=== PATIENT | female | born 1980 | race Caucasian/White ===

== ENCOUNTER → 2018-09-22 | Outpatient (CLI) | payer BC ==
[~2018-09-22] MED LIST: BALSALAZIDE DI750 MG PO; DIATRIZOATE MEGL/DIATRIZOA SOD 30 ML BTL PO ONE; FLAGYL250 MG PO; IOPAMIDOL 370 MG/ML 200 ML INFUS..BTL INJ ONE; IRON SULFATE PO; LEVAQUIN500 MG PO; NORCO 5-325 TA1 EACH PO; PANTOPRAZOLE SO40 MG PO; PROMETHAZINE HC50 MG PO; SODIUM CHLORIDE 0.9% 50ML 50 ML ONE
--- NOTE | 2018-09-22 11:01 | Diagnostic Imaging Report ---
EXAM: CT Abdomen and Pelvis WITH intravenous contrast INDICATION: Abdominal pain COMPARISON: None. TECHNIQUE: Abdomen and pelvis were scanned utilizing a multidetector helical scanner from the lung base to the pubic symphysis after administration of IV contrast. Coronal and sagittal reformations were obtained. Routine protocol was performed. Scan was performed when during portal venous phase. IV CONTRAST: 100mL of Isovue 370 ORAL CONTRAST: Gastrografin COMPLICATIONS: None RADIATION DOSE: Total DLP: 234.3 mGy*cm Dose modulation, iterative reconstruction, and/or weight based adjustment of the mA/kV was utilized to reduce the radiation dose to as low as reasonably achievable. FINDINGS: LOWER THORAX: Minimal bibasilar dependent subsegmental atelectasis. The heart is not enlarged. Tiny sliding hiatal hernia. HEPATOBILIARY: No focal hepatic lesions. No biliary ductal dilatation. The gallbladder appears unremarkable. SPLEEN: No splenomegaly. PANCREAS: No focal masses or ductal dilatation. ADRENALS: No adrenal nodules. KIDNEYS/URETERS: No hydronephrosis, stones, or solid mass lesions. 5.3 cm exophytic simple cyst at the upper pole of right kidney. PELVIC ORGANS/BLADDER: Distended bladder. No wall thickening. PERITONEUM / RETROPERITONEUM: No free air or fluid. LYMPH NODES: No lymphadenopathy. VESSELS: Unremarkable. GI TRACT: No abnormal bowel thickening or bowel obstruction. BONES AND SOFT TISSUES: No acute osseous injury. No suspicious lytic or blastic lesions. IMPRESSION: No acute findings in the abdomen or pelvis. Signed by: Karishma Shah MD on 09/22/2018 10:58 AM
== END ==
LOC: CT 09:03
PROVIDERS: ATTEND Internal Medicine Gastroenterology
DX: R10.30 Lower abdominal pain, unspecified (principal)
CPT/HCPCS: 74177; Q9967

== ENCOUNTER → 2018-09-28 | Day surgery (SDC) | payer BC ==
[~2018-09-28] MED LIST changes: -DIATRIZOATE MEGL/DIATRIZOA SOD 30 ML BTL PO ONE; +GLUCAGON FOR INJ 1 MG VIAL ONE; +HYOSCYAMINE 0.125 MG TAB ONE; -IOPAMIDOL 370 MG/ML 200 ML INFUS..BTL INJ ONE; +METOCLOPRAMIDE HCL 10 MG/2ML VIAL ONE; +PANTOPRAZOLE 40 MG 10ML VIAL ONE; +PROPOFOL IV EMULSION 10 MG/ML 50 ML VIAL ONE; -SODIUM CHLORIDE 0.9% 50ML 50 ML ONE
--- OUTSIDE RECORDS SUMMARY | 2018-09-28 08:38 | XMS REPORT ---
Author Author [facility] Address Unknown Phone Unavailable Care Team Providers Care Tugboat Mate Name Role Phone PATEL WEST Unavailable Unavailable Problems This patient has no known problems. Allergies, Adverse Reactions, Alerts This patient has no known allergies or adverse reactions. Medications This patient has no known medications. Results Test Description Test Time Test Comments Text Results Atomic Results Result Comments CT ABDOMEN/PELVIS W 2018-09-22 10:51:00 [place] [address] Patient Name: BIRD BOONE MR #: [id number] : 1980 Age/Sex: 38/F Req #: [id number] Adm Physician: Ordered by: PATEL WEST MD Report #: [id number] Location: CT Room/Bed: Procedure: [id number] CT/CT ABDOMEN/PELVIS W Exam Date: Exam Time: REPORT STATUS: Signed EXAM: CT Abdomen and Pelvis WITH intravenous contrast INDICATIO N: Abdominal pain COMPARISON: None. TECHNIQUE: Abdomen and pelvis were scanned utilizing a multidetector helical scanner from the lung base to the pubic symphysis after administration of IV contrast. Coronal and sagittal reformations were obtained. Routine protocol was performed. Scan was performed when during portal venous phase. IV CONTRAST: 100mL of Isovue 370 ORAL CONTRAST: Gastrografin COMPLICATIONS: None RADIATION DOSE: Total DLP: 234.3 mGy*cm Dose modulation, iterative reconstruction, and/or weight based adjustment of the mA/kV was utilized to reduce the radiation dose to as low as reasonably achievable. FINDINGS: LOWER THORAX: Minimal bibasilar dependent subsegmental atelectasis. The heart is not enlarged. Tiny sliding hiatal hernia. HEPATOBILIARY: No focal hepatic lesions. No biliary ductal dilatation. The gallbladder appears unremarkable. SPLEEN: No splenomegaly. PANCREAS: No focal masses or ductal dilatation. ADRENALS: No adrenal nodules. KIDNEYS/URETERS: No hydronephrosis, stones, or solid mass lesions. 5.3 cm exophytic simple cyst at the upper pole of right kidney. PELVIC ORGANS/BLADDER: Distended bladder. No wall thickening. PERITONEUM / RETROPERITONEUM: No free air or fluid. LYMPH NODES: No lymphadenopathy. VESSELS: Unremarkable. GI TRACT: No abnormal bowel thickening or bowel obstruction. BONES AND SOFT TISSUES: No acute osseous injury. No suspicious lytic or blastic lesions. IMPRESSION: No acute findings in the abdomen or pelvis. Signed by: Catrachito Shah MD on 09/22/2018 10:58 AM Dictated By: CATRACHITO SHAH MD [id number] Transcribed By: LAKISHA on 09/22/18 1052 COPY TO: PATEL WEST MD
[2018-09-28 13:25] VITALS: BP 102/57
[2018-09-28 14:56] LABS: WBC,FECAL (FECAL LACTOFERRIN) POSITIVE (NEGATIVE)
[2018-09-28 15:48] LABS: C DIFFICILE TOXIN A&B AMP PROB NEGATIVE (NEGATIVE)
--- NOTE | 2018-09-28 15:55 | Operative Report ---
DATE OF PROCEDURE: 09/28/2018 SURGEON: Jose Reyna MD PROCEDURES: Esophagogastroduodenoscopy with biopsies and colonoscopy with biopsies. INDICATIONS FOR EGD: History of dark stools. INDICATIONS FOR COLONOSCOPY: Blood, mucus per rectum, fecal urgency. MEDICATIONS: The patient was done under MAC, please see anesthesiologist's note. PROCEDURE IN DETAIL: With the patient in left lateral decubitus position, the flexible fiberoptic Olympus gastroscope was introduced into the esophagus under direct visualization without any difficulty. There was a minute ulcer with heaped up margins noted in the distal esophagus and it was biopsied. The scope was then advanced with ease into the stomach traversing a moderate-sized hiatal hernia. The patient is apparently status post gastric sleeve. The mucosa overlying the body of the stomach revealed some patchy intense erythema? vascular ectasia. Biopsies were obtained. Also, mild inflammatory changes were noted in the antrum and biopsies were obtained. The pylorus was of normal contour and shape, it was intubated with ease and the scope was advanced all the way to the second portion of the duodenum. Biopsies were obtained from the second portion and the duodenal bulb to rule out sprue. The scope was then withdrawn back into the stomach and retroflexed and previously described hiatal hernia was also noted in the retroflexed position. The scope was then straightened out, it was subsequently withdrawn. The patient tolerated the procedure well. IMPRESSION: 1. Minute ulcer distal esophagus with heaped up margins, biopsied. 2. Moderate-sized hiatal hernia. 3. Status post gastric sleeve. 4. Gastritis? Numerous vascular ectasia in the body of stomach. 5. Rule out sprue. PLAN: Follow up histology. Initiate Protonix 40 mg one p.o. q.a.m. a.c. PROCEDURE IN DETAIL: The patient was then turned around after adequate lubrication of the anal canal. A flexible fiberoptic Olympus colonoscope was inserted into the rectum and advanced all the way to the cecum. Mucosa overlying the cecum grossly appeared to be within normal limits. The ileocecal valve was intubated and the scope was advanced into the terminal ileum. Biopsies were obtained. The scope was then withdrawn back into the colon. It was then withdrawn slowly and the ascending colon appeared basically to be within normal limits. There were some diffuse [id number] inflammatory changes noted in the transverse colon. The descending sigmoid and rectum was diffusely ulcerated with multiple punched-out ulcers and multiple random biopsies were obtained. The scope was then retroflexed into the distal rectum and moderate-sized internal hemorrhoids were noted, none of which was actively bleeding. The scope was then straightened out, it was subsequently withdrawn after securing an adequate stool specimen that was sent for the appropriate stool studies. The patient tolerated the procedure well. IMPRESSION: 1. Severe ulcerative colitis involving the descending colon and rectum and to a lesser extent the transverse colon. Ascending colon, cecum appeared to be spared. Multiple random biopsies were obtained. 2. Internal hemorrhoids, none actively bleeding. PLAN: Followup histology. Stain for CMV. Follow up stool studies. Check IBD panel, CRP, and sedimentation rate. Initiate Canasa suppositories 1000 mg at bedtime and balsalazide 750 mg three p.o. t.i.d. Jose Reyna MD [facility] /[id number] cc: Dariel Tucker DO
== END | disposition home or self-care (01) ==
LOC: OR 08:36
PROVIDERS: ATTEND Internal Medicine Gastroenterology
DX: K29.00 Acute gastritis without bleeding (principal); K29.50 Unspecified chronic gastritis without bleeding; K51.80 Other ulcerative colitis without complications; K21.0 Gastro-esophageal reflux disease with esophagitis; K22.10 Ulcer of esophagus without bleeding; K59.00 Constipation, unspecified; K44.9 Diaphragmatic hernia without obstruction or gangrene; K64.8 Other hemorrhoids; Z98.84 Bariatric surgery status; K13.79 Other lesions of oral mucosa
CPT/HCPCS: 36415; 43239; 45380; 83630; 83993; 84702; 85651; 86039; 86140; 86256; 86671; 87045; 87177; 87328; 87493; C9113; J1610; J2704; J2765; 45378

== ENCOUNTER 2018-10-16 16:03 | Inpatient (IN) | payer BC ==
[~2018-10-16] VITALS: Ht 170.2 cm; Wt 60.4 kg
[2018-10-16] MEDS ORDERED: PANTOPRAZOLE 40 MG 10ML VIAL IV ONE (16:17)
[2018-10-16] MEDS ORDERED: ONDANSETRON HCL INJ 2MG/ML 2ML 2 MG/ML VIAL IV ONE (16:17)
[2018-10-16] MEDS ORDERED: MORPHINE SULFATE 2 MG/ML SYR 1ML IV STA (16:17)
[2018-10-16] MEDS ORDERED: DICYCLOMINE HCL 20 MG/2 ML VIAL IM ONE (16:30)
[2018-10-16] MEDS ORDERED: SODIUM CHLORIDE 0.9% 1000ML 1,000 ML IV ONE (16:30)
[2018-10-16] MEDS ORDERED: MORPHINE SULFATE INJ 4 MG/ML INJ 1ML IV ONE (16:30)
[2018-10-16] MEDS ORDERED: DEXAMETHASONE SOD PHOS 10 MG/1 ML VIAL IV ONE (16:30)
[2018-10-16 17:04] LABS: BASOPHILS % 0.3 % (0.0-1.0); EOSINOPHILS % 0.3 % (0.0-6.0); HEMATOCRIT 30.4 % (34.2-44.1); HEMOGLOBIN 9.9 g/dL (12.0-16.0); LYMPHOCYTES # (AUTO) 1.2 (1.0-3.2); LYMPHOCYTES % 16.7 % (18.0-39.1); MEAN CORPUSCULAR HEMOGLOBIN 30.4 pg (28-32); MEAN CORPUSCULAR HGB CONC 32.6 g/dL (31-35); MEAN CORPUSCULAR VOLUME 93.3 fL (81-99); MONOCYTES # (AUTO) 0.6 (0.2-0.8); MONOCYTES % 8.5 % (4.4-11.3); NEUTROPHILS # (AUTO) 5.4 (2.1-6.9); NEUTROPHILS % 72.6 % (38.7-80.0); PLATELET COUNT 540 x10e3/uL (140-360); RED BLOOD COUNT 3.26 x10e6/uL (3.6-5.1)
[2018-10-16 17:23] LABS: ALANINE AMINOTRANSFERASE 11 IU/L (0-55); ALBUMIN 1.9 g/dL (3.5-5.0); ALBUMIN/GLOBULIN RATIO 0.5 (0.8-2.0); ALKALINE PHOSPHATASE 102 IU/L (40-150); ANION GAP 13.2 mmol/L (8-16); BLOOD UREA NITROGEN 10 mg/dL (7-26); BUN/CREATININE RATIO 16 (6-25); CALCIUM 8.1 mg/dL (8.4-10.2); CARBON DIOXIDE 31 mmol/L (22-29); CHLORIDE 92 mmol/L (98-107); CREATININE, SERUM 0.64 mg/dL (0.57-1.11); EST GLOMERULAR FILTRATION RATE > 60 ML/MIN (60-); GLUCOSE 103 mg/dL (74-118); POTASSIUM 3.2 mmol/L (3.5-5.1); SODIUM 133 mmol/L (136-145)
[2018-10-16] MEDS ORDERED: POTASSIUM CHLORIDE 20MEQ/100ML 100 ML IV ONE (17:30)
[2018-10-16] MEDS: SODIUM CHLORIDE 0.9% 1000ML 1,000 ML IV SCH (18:22)
[2018-10-16] MEDS ORDERED: PANTOPRAZOLE SO40 MG PO (18:25)
[2018-10-16] MEDS ORDERED: BALSALAZIDE DI750 MG PO (18:25)
[2018-10-16] MEDS ORDERED: ACETAMINOPHEN 325 MG TAB ONE (19:43)
[2018-10-16] MEDS ORDERED: ACETAMINOPHEN 325 MG TAB PO PRN (19:45)
--- NOTE | 2018-10-16 19:50 | NUR ---
PT ARRIVED ON THE UNIT VIA STRETCHER AT 1950. PT IS A&OX3. RESPIRATION IS EVEN AND UNLABORED, NO DISTRESS NOTED. PT AND HER MOTHER ORIENTED TO THE ROOM, BED IN LOWEST POSITION, LOCKED, AND CALL LIGHT WITHIN REACH. ADMISSION AND HEAD TO TOE ASSESSMENT COMPLETE. WILL CONTINUE TO MONITOR.
[2018-10-16 20:00] VITALS: BP 96/54
--- NOTE | 2018-10-16 20:11 | NUR ---
PAGE DR Elaina WEST FOR ORDERS. AWAITING CALL BACK. WILL CONTINUE TO MONITOR.
--- NOTE | 2018-10-16 20:54 | NUR ---
PER DR Elaina WEST DILAUDID 2MG IV Q4H PRN. WILL CONTINUE TO MONITOR.
[2018-10-16 21:29] LABS: BAND NEUTROPHILS % (MANUAL) 7 %; LYMPHOCYTES % (MANUAL) 19 % (19-48); METAMYELOCYTES % (MANUAL) 1 % (0-0); MONOCYTES % (MANUAL) 10 % (3.4-9.0); MYELOCYTES % (MANUAL) 2 % (0-0); NEUTROPHILS % (MANUAL) 61 % (40-74)
[2018-10-16 21:30] LABS: ANISOCYTOSIS MODERATE; HYPOCHROMASIA MODERATE; PLATELET ESTIMATE SLIGHTLY INCREASED; RBC MORPHOLOGY COMMENT ABNORMAL
[2018-10-16 21:31] LABS: PLATELET MORPHOLOGY COMMENT NORMAL
--- NOTE | 2018-10-16 22:35 | NUR ---
PAGE DR Elaina WEST FOR NEW PAIN MEDICATION AND FOR STRAIGHT CATH ORDER. BLADDER SCAN PT AND GOT 531. AWAITING CALL BACK. WILL CONTINUE TO MONITOR.
--- NOTE | 2018-10-16 22:38 | NUR ---
PER DR Elaina WEST NORCO 5MG-325 Q6H PO PRN AND STRAIGHT CATH PRN. WILL CONTINUE TO MONITOR.
[2018-10-16] MEDS: HYDROCODONE/APAP 5MG-325MG TAB PO PRN (23:23)
--- NOTE | 2018-10-16 23:30 | NUR ---
STRAIGHT CATH PT AND GOT 550. WILL CONTINUE TO MONITOR.
[2018-10-16 23:39] LABS: BILIRUBIN,URINE SMALL (NEGATIVE); CLARITY,URINE CLOUDY (CLEAR); COLOR,URINE YELLOW (YELLOW); KETONES,URINE NEGATIVE (NEGATIVE); LEUKOCYTE ESTERASE ,URINE NEGATIVE (NEGATIVE); NITRITE,URINE NEGATIVE (NEGATIVE); PROTEIN,URINE DIPSTICK NEGATIVE (NEGATIVE); URINE UROBILINOGEN 0.2 mg/dL (0.2 - 1)
[2018-10-16 23:52] LABS: AMORPHOUS SEDIMENT,URINE MANY (FEW); BACTERIA,URINE FEW /HPF; EPITHELIAL CELLS,URINE FEW /LPF; RBC,URINE 0-5 /HPF (0-5); TRANSITIONAL EPI CELLS,URINE FEW; WBC,URINE (MAN) 0-5 /HPF (0-5)
[2018-10-17] VITALS (10 sets, daily range): BP systolic 86–106; BP diastolic 47–62
[2018-10-17] MEDS: SODIUM CHLORIDE 0.9% 1000ML 1,000 ML IV SCH ×3 (03:04→19:27)
[2018-10-17] MEDS: PANTOPRAZOLE 40 MG 10ML VIAL IV SCH ×2 (03:04→14:50)
[2018-10-17] MEDS ORDERED: BALSALAZIDE DISODIUM 750 MG CAPSULE PO STA (03:07)
[2018-10-17] MEDS ORDERED: LACTOBACILLUS ACIDOPHILUS CAPSULE PO STA (03:09)
[2018-10-17] MEDS ORDERED: DICYCLOMINE HCL 20 MG TAB PO STA (03:09)
[2018-10-17 06:24] LABS: BASOPHILS % 0.3 % (0.0-1.0); HEMOGLOBIN 8.6 g/dL (12.0-16.0); LYMPHOCYTES % 15.3 % (18.0-39.1); MEAN CORPUSCULAR HEMOGLOBIN 29.9 pg (28-32); MEAN CORPUSCULAR HGB CONC 31.9 g/dL (31-35); MEAN CORPUSCULAR VOLUME 93.8 fL (81-99); MONOCYTES # (AUTO) 0.4 (0.2-0.8); MONOCYTES % 6.8 % (4.4-11.3); NEUTROPHILS # (AUTO) 4.7 (2.1-6.9); NEUTROPHILS % 75.5 % (38.7-80.0); PLATELET COUNT 485 x10e3/uL (140-360); RED BLOOD COUNT 2.88 x10e6/uL (3.6-5.1); RED CELL DISTRIBUTION WIDTH 13.1 % (11.7-14.4)
[2018-10-17 06:50] LABS: ANION GAP 8.4 mmol/L (8-16); BLOOD UREA NITROGEN 9 mg/dL (7-26); BUN/CREATININE RATIO 18 (6-25); CALCIUM 7.9 mg/dL (8.4-10.2); CARBON DIOXIDE 31 mmol/L (22-29); CHLORIDE 94 mmol/L (98-107); CREATININE, SERUM 0.51 mg/dL (0.57-1.11); EST GLOMERULAR FILTRATION RATE > 60 ML/MIN (60-); GLUCOSE 109 mg/dL (74-118); POTASSIUM 3.4 mmol/L (3.5-5.1); SODIUM 130 mmol/L (136-145)
--- NOTE | 2018-10-17 07:03 | NUR ---
Received patient resting in bed. No acute distress noted, respirations even and unlabored. Family at bedside. Call light within reach. Bed in the lowest position.
[2018-10-17 07:05] LABS: LYMPHOCYTES % (MANUAL) 17 % (19-48); MONOCYTES % (MANUAL) 3 % (3.4-9.0); NEUTROPHILS % (MANUAL) 80 % (40-74)
[2018-10-17 07:06] LABS: PLATELET ESTIMATE MODERATELY INCREASED
[2018-10-17 07:13] LABS: FERRITIN 483.2 ng/mL (4.63-204.00)
[2018-10-17 07:26] LABS: FOLATE 2.8 ng/mL (7.0-15.4)
[2018-10-17] MEDS: HYDROMORPHONE 2MG/ML 2 MG/ML ML IV PRN ×4 (08:29→23:30)
[2018-10-17] MEDS: ONDANSETRON HCL INJ 2MG/ML 2ML 2 MG/ML VIAL IV PRN ×4 (08:29→23:30)
[2018-10-17] MEDS: LACTOBACILLUS ACIDOPHILUS CAPSULE PO SCH ×3 (08:30→21:00)
[2018-10-17 10:27] LABS: C DIFFICILE TOXIN A&B AMP PROB NEGATIVE (NEGATIVE); WBC,FECAL (FECAL LACTOFERRIN) POSITIVE (NEGATIVE)
--- NOTE | 2018-10-17 10:45 | NUR ---
Dr. Reyna rounding on patient, notified him of sodium level of 130, no new orders from MD. Also notified him of potassium level of 3.4, new orders received.
[2018-10-17] MEDS ORDERED: POTASSIUM CHLORIDE 20 MEQ TAB CR PO NR (11:00)
[2018-10-17] MEDS ORDERED: BALSALAZIDE DISODIUM 750 MG CAPSULE PO SCH (14:00)
[2018-10-17] MEDS: DICYCLOMINE HCL 20 MG TAB PO SCH ×2 (14:50→21:26)
--- NOTE | 2018-10-17 14:53 | NUR ---
Spoke to Dr. Dima Reyna in regards to medication Balsalazide not being available at the pharmacy. Per MD ok to use patient's own medication.
[2018-10-17] MEDS: BALSALAZIDE 750 MG PO SCH ×2 (15:55→21:32)
--- NOTE | 2018-10-17 18:08 | NUR ---
Nutrition Intervention Note RD Recommendation(s) for Physician: The patient meets criteria for unspecified SEVERE protein-calorie malnutrition. -When medically appropriate, rec advancing diet to GI soft diet -Rec MVi w/ folic acid Plan of Care: RD following, monitoring for tolerance and adequacy Nutrition reason for involvement: Nutrition risk trigger MST RD Assessment 10/17 38yo F, who was admitted for rectal bleeding. Negative C diff. Visited pt in the room. Pt reported poor appetite and 20lbs weight loss in 3 weeks due to hx of ulcerative colitis. Pt has had rectal bleeding for the last few weeks. Pt denied any nausea or vomiting. Tolerating clear liquid so far. Pt has no issue with chewing or swallowing. Pt has some moderate fat/muscle loss upon observation. Pt was given handouts and diet education on ulcerative colitis in the past. Not interested in any education at this time. RD will return to assess in the next few days as pt appeared to be uncomfortable. Principal Problems/Diagnoses: dehydration, rectal bleeding, colitis PMH: no H&P in chart GI: abdomen flat, soft, non-tender, flatus present, bloody stool Skin: no pressure wound noted Labs: (10/17) Na 120 L, K 3.4 L, creatinine 0.51 L, Ca 7.9 L, Iron 19 L, TIBC 150L, Transferrin 107 L, Ferritin 483 H, vitamin B12 >2000 H, Folate 2.8 L Meds: probiotics, protonix, zofran, dilaudid, NaCl Ht: 67in Wt: 118lb BMI: 18.5kg/m2 IBW: 135lb +/- 10% Malnutrition Evaluation (10/17/2018) The patient meets criteria for unspecified SEVERE protein-calorie malnutrition. Energy intake: <50% of estimated energy requirements for >5 days Weight loss: >2% in 1week (Acute) Fat loss: Moderate hollow look around orbital region Muscle loss: Moderate temporal depression, protrusion of acromion process Supporting Evidence: Fluid accumulation: unable to evaluate Functional Status: no changes Nutrition Prescription (Diet Order): clear liquid diet Estimated Nutritional Needs: Calories: 1620-1890kcal (30-35kcal/kg/d) Weight used: CBW Protein: 81 - 108g (1.5 2g/kg/d) Weight used: CBW Diet Adequacy: Not meeting calorie needs, Not meeting protein needs Diet Education Needs Assessment: Diet education indicated, but patient not appropriate for education at this time. Nutrition Care Level: high Nutrition Diagnosis: Severe malnutrition related inadequate oral intake as evidenced by poor appetite x 3 weeks, weight loss, and muscle/ fat loss. Goal: Patient will meet 75-100% of estimated needs by follow up Progress: n/a Interventions: Modified diet, Multivitamin/mineral supplement therapy Monitoring/Evaluation: Total energy intake, Total protein intake, Prescription medication, Modified diet, Weight change Signed: Marcela Chen MS, RD, LD
--- NOTE | 2018-10-17 19:00 | NUR ---
patient received awake, alert, lying quietly in bed. vss. patient c/o pain due to not being able to void. call placed to re: delgadillo catheter vs straight cath. awaiting return call. pm assessment complete. many family members noted at the bedside. patient instructed to call for assistance when needed.
--- NOTE | 2018-10-17 19:37 | NUR ---
PATIENT STATES SHE HASN'T URINATED ALL DAY TODAY. BLADDER SCAN SHOWS 447ML. PATIENT AWARE THAT SHE CAN GET STRAIGHT CATH PRN, SHE ASKED IF NURSE CAN ASK DOCTOR FOR A DANIEL INSTEAD OF STRAIGHT CATH BECAUSE IS UNCOMFORTABLE. PAGED DR. Dc WEST WAITING ON ORDERS.
--- NOTE | 2018-10-17 19:37 | NUR ---
REPORT GIVEN TO ONCOMING NURSE, PATIENT IS IN STABLE CONDITION. NO ACUTE DISTRESS NOTED. CALL LIGHT WITHIN REACH. BED IN THE LOWEST POSITION.
--- NOTE | 2018-10-17 19:43 | NUR ---
DR. Dc WEST CALLED BACK REGARDING PATIENT RETAINING URINE, NEW ORDER RECEIVED FOR DANIEL.
--- NOTE | 2018-10-17 19:56 | NUR ---
16 Fr Osei catheter inserted, with 10 mLs in balloon. Osei locked to left thigh, draining well. Bag hanging below bed level.
[2018-10-17] MEDS ORDERED: METHYLPREDNISOLONE SOD SUCC 40 MG/ML VIAL 1ML IV STA (23:08)
[2018-10-17] MEDS ORDERED: IRON SUCROSE 100 MG in SODIUM CHLORIDE 0.9% 100 ML 100 ML IV SCH (23:15)
[2018-10-17] MEDS ORDERED: FOLIC ACID 1 MG TAB PO ONE (23:15)
[2018-10-17] MEDS ORDERED: ALBUMIN 25% 12.5GM 0.25 GM/ML BTL IV ONE (23:30)
--- NOTE | 2018-10-17 23:30 | NUR ---
patient medicated with dilaudid 2mg and zofran 4mg ivp for c/o lower abd pain 7/10 at this time.
[2018-10-18] VITALS (8 sets, daily range): BP systolic 84–114; BP diastolic 46–58
[2018-10-18] MEDS: PANTOPRAZOLE 40 MG 10ML VIAL IV SCH ×2 (02:52→17:45)
--- NOTE | 2018-10-18 03:00 | NUR ---
patient ambulatory to bathroom. light red bloody stool trail noted from patients bed to the bathroom. patient assisted with cleaning herself up. pain minimal at this time. mom remains at the bedside.
[2018-10-18] MEDS: ONDANSETRON HCL INJ 2MG/ML 2ML 2 MG/ML VIAL IV PRN ×4 (03:40→17:45)
[2018-10-18] MEDS: SODIUM CHLORIDE 0.9% 1000ML 1,000 ML IV SCH ×3 (03:40→17:45)
[2018-10-18] MEDS: HYDROMORPHONE 2MG/ML 2 MG/ML ML IV PRN ×4 (03:40→17:45)
--- NOTE | 2018-10-18 03:40 | NUR ---
patient medicated with dilaudid 2mg and zofran 4mg ivp for c/o lower abd pain 7/10 at this time.
[2018-10-18] MEDS: METHYLPREDNISOLONE SOD SUCC 40 MG/ML VIAL 1ML IV SCH ×3 (05:10→22:00)
[2018-10-18] MEDS: DICYCLOMINE HCL 20 MG TAB PO SCH ×3 (05:10→22:00)
[2018-10-18] MEDS: ALBUMIN 25% 12.5GM 0.25 GM/ML BTL IV SCH ×4 (05:10→23:46)
[2018-10-18] MEDS: BALSALAZIDE 750 MG PO SCH ×3 (05:10→22:00)
--- NOTE | 2018-10-18 07:00 | NUR ---
Pt received resting in bed. Alert and oriented x4. Pt with left AC #18 saline lock receiving. Oriented to staff and surroundings. Encouraged to press call millard if help needed. Call millard within reach. Will monitor
[2018-10-18] MEDS ORDERED: SODIUM CHLORIDE 0.9% 50ML 50 ML ONE (08:10)
[2018-10-18] MEDS: LACTOBACILLUS ACIDOPHILUS CAPSULE PO SCH ×3 (08:20→21:00)
[2018-10-18] MEDS: IRON SUCROSE 100 MG in SODIUM CHLORIDE 0.9% 100 ML 100 ML IV SCH (08:20)
[2018-10-18] MEDS: FOLIC ACID 1 MG TAB PO SCH (08:20)
--- NOTE | 2018-10-18 08:20 | NUR ---
All meds given as ordered. Call millard within reach. Emotional support given. Will monitor
--- NOTE | 2018-10-18 19:05 | NUR ---
Completed BS rounds with morning nurse. Pt alert and orient to name. Lying in bed HOB 45 degrees. Osei 16Fr draining yellow, clear urine. Pt denies dysuria. c/o mild lower abd, previously medicated. Family at bedside. Call millard within reach. Bed low and locked. Will continue to monitor.
--- NOTE | 2018-10-18 20:24 | NUR ---
Pt resting in bed with mother at bedside. Handoff given to oncoming staff. Call millard within reach.
[2018-10-19] VITALS (8 sets, daily range): BP systolic 104–133; BP diastolic 55–79
[2018-10-19] MEDS: SODIUM CHLORIDE 0.9% 1000ML 1,000 ML IV SCH ×3 (01:50→16:47)
[2018-10-19] MEDS: HYDROMORPHONE 2MG/ML 2 MG/ML ML IV PRN ×6 (02:22→22:45)
[2018-10-19] MEDS: ONDANSETRON HCL INJ 2MG/ML 2ML 2 MG/ML VIAL IV PRN ×6 (02:22→22:45)
[2018-10-19] MEDS: PANTOPRAZOLE 40 MG 10ML VIAL IV SCH ×2 (03:30→12:33)
[2018-10-19 05:48] LABS: LYMPHOCYTES # (AUTO) 0.8 (1.0-3.2); LYMPHOCYTES % 17.7 % (18.0-39.1); MEAN CORPUSCULAR HEMOGLOBIN 30.6 pg (28-32); MEAN CORPUSCULAR HGB CONC 31.5 g/dL (31-35); MEAN CORPUSCULAR VOLUME 97.3 fL (81-99); MONOCYTES # (AUTO) 0.2 (0.2-0.8); MONOCYTES % 3.9 % (4.4-11.3); NEUTROPHILS # (AUTO) 3.4 (2.1-6.9); NEUTROPHILS % 75.1 % (38.7-80.0); PLATELET COUNT 320 x10e3/uL (140-360); RED BLOOD COUNT 2.22 x10e6/uL (3.6-5.1); RED CELL DISTRIBUTION WIDTH 13.4 % (11.7-14.4)
[2018-10-19 05:54] LABS: HEMOGLOBIN 6.8 g/dL (12.0-16.0)
[2018-10-19 05:55] LABS: HEMATOCRIT 21.6 % (34.2-44.1)
[2018-10-19] MEDS: ALBUMIN 25% 12.5GM 0.25 GM/ML BTL IV SCH ×4 (06:00→23:30)
[2018-10-19] MEDS: METHYLPREDNISOLONE SOD SUCC 40 MG/ML VIAL 1ML IV SCH ×3 (06:00→22:00)
[2018-10-19] MEDS: DICYCLOMINE HCL 20 MG TAB PO SCH ×3 (06:00→22:00)
--- NOTE | 2018-10-19 06:03 | NUR ---
Dr. Elaina Reyna pg'd regarding Pt Hgb 6.8. Pt asymptomatic no fatigue, no paleness, HR 60, x1 mild rectal bleeding this shift. Awaiting call back for further instructions.
[2018-10-19 06:17] LABS: ANION GAP 8.9 mmol/L (8-16); BLOOD UREA NITROGEN 6 mg/dL (7-26); BUN/CREATININE RATIO 13 (6-25); CALCIUM 8.3 mg/dL (8.4-10.2); CARBON DIOXIDE 27 mmol/L (22-29); CHLORIDE 98 mmol/L (98-107); CREATININE, SERUM 0.48 mg/dL (0.57-1.11); EST GLOMERULAR FILTRATION RATE > 60 ML/MIN (60-); GLUCOSE 121 mg/dL (74-118); POTASSIUM 3.9 mmol/L (3.5-5.1); SODIUM 130 mmol/L (136-145)
[2018-10-19] MEDS: BALSALAZIDE 750 MG PO SCH ×3 (06:45→22:00)
--- NOTE | 2018-10-19 07:00 | NUR ---
Pt received resting in bed. Call millard within reach. Will monitor
[2018-10-19 07:27] LABS: LYMPHOCYTES % (MANUAL) 19 % (19-48); MONOCYTES % (MANUAL) 4 % (3.4-9.0); NEUTROPHILS % (MANUAL) 77 % (40-74)
[2018-10-19 07:28] LABS: PLATELET ESTIMATE SLIGHTLY INCREASED; RBC MORPHOLOGY COMMENT NORMAL
[2018-10-19] MEDS: LACTOBACILLUS ACIDOPHILUS CAPSULE PO SCH ×3 (09:05→22:00)
[2018-10-19] MEDS: IRON SUCROSE 100 MG in SODIUM CHLORIDE 0.9% 100 ML 100 ML IV SCH (09:05)
[2018-10-19] MEDS: FOLIC ACID 1 MG TAB PO SCH (09:05)
--- NOTE | 2018-10-19 09:05 | NUR ---
Pt with hgb 6.8. Informed of possible need for blood transfusion. Mother at bedside. All meds given as ordered. Will monitor
--- NOTE | 2018-10-19 10:40 | NUR ---
As per Dr. Elaina Reyna, 2 units of blood ordered. Will follow up
[2018-10-19] MEDS ORDERED: SODIUM CHLORIDE 0.9% 250ML 250 ML IV ONE (10:45)
--- NOTE | 2018-10-19 11:00 | NUR ---
Consent for blood transfusion obtained. Will monitor
--- NOTE | 2018-10-19 13:00 | NUR ---
Pt with hgb 6.8. Blood verified by 2 nurses. Blood unit number [id number]. Will follow up
--- NOTE | 2018-10-19 13:15 | NUR ---
No untoward reaction noted during first 15 minutes. Educated regarding untoward reaction that can occur. Emotional support given. Will monitor
--- NOTE | 2018-10-19 16:00 | NUR ---
Blood transfusion completed. No untoward reaction noted or voiced. Will give second unit
--- NOTE | 2018-10-19 16:25 | NUR ---
Pt with hgb 6.8. Second unit of blood transfusion started at 1625. Blood verified by 2 nurses. Blood unit number [id number]. Emotional support given. Call millard within reach. Will monitor
--- NOTE | 2018-10-19 16:40 | NUR ---
No untoward reaction noted during first unit of blood transfusion. Emotional support given. Call millard within reach. Will monitor
--- NOTE | 2018-10-19 19:00 | NUR ---
Report received from morning nurse. Pt alert and orient to name. Pt sitting up in bed receiving the completion of 2/2 PRBCs transfusion, no reactions noted. c/o mild lower abd pain, previously medicated. Family at bedside. Call millard within reach. Bed low and locked. Will continue to monitor.
--- NOTE | 2018-10-19 19:20 | NUR ---
Blood transfusion completed. No s/s of blood transfusion reaction observed. BP 118/79, HR 58, RR 18, Temp 96.9, O2 sat 96%. No acute distress noted. Will continue to monitor.
[2018-10-19] MEDS: HYDROCODONE/APAP 5MG-325MG TAB PO PRN (19:40)
--- NOTE | 2018-10-19 19:40 | NUR ---
c/o increased lower abdominal constant pain 6/10 on numeric scale. prn [place] given. Call millard within reach.
[2018-10-20] VITALS (8 sets, daily range): BP systolic 94–125; BP diastolic 57–66
[2018-10-20] MEDS: SODIUM CHLORIDE 0.9% 1000ML 1,000 ML IV SCH ×2 (01:50→11:33)
[2018-10-20] MEDS: HYDROMORPHONE 2MG/ML 2 MG/ML ML IV PRN ×5 (03:00→20:05)
[2018-10-20] MEDS: PANTOPRAZOLE 40 MG 10ML VIAL IV SCH ×2 (03:00→14:28)
[2018-10-20] MEDS: ONDANSETRON HCL INJ 2MG/ML 2ML 2 MG/ML VIAL IV PRN ×5 (03:00→20:05)
[2018-10-20] MEDS: BALSALAZIDE 750 MG PO SCH ×3 (06:00→21:50)
[2018-10-20] MEDS: METHYLPREDNISOLONE SOD SUCC 40 MG/ML VIAL 1ML IV SCH ×3 (06:00→21:50)
[2018-10-20] MEDS: DICYCLOMINE HCL 20 MG TAB PO SCH ×3 (06:00→21:50)
[2018-10-20 06:14] LABS: BASOPHILS % 0.1 % (0.0-1.0); HEMATOCRIT 27.8 % (34.2-44.1); LYMPHOCYTES # (AUTO) 0.7 (1.0-3.2); LYMPHOCYTES % 8.1 % (18.0-39.1); MEAN CORPUSCULAR HEMOGLOBIN 30.8 pg (28-32); MEAN CORPUSCULAR HGB CONC 32.4 g/dL (31-35); MEAN CORPUSCULAR VOLUME 95.2 fL (81-99); MONOCYTES # (AUTO) 0.4 (0.2-0.8); NEUTROPHILS # (AUTO) 7.6 (2.1-6.9); NEUTROPHILS % 82.8 % (38.7-80.0); PLATELET COUNT 382 x10e3/uL (140-360); RED BLOOD COUNT 2.92 x10e6/uL (3.6-5.1); RED CELL DISTRIBUTION WIDTH 14.1 % (11.7-14.4)
[2018-10-20 06:35] LABS: ANION GAP 10.6 mmol/L (8-16); BLOOD UREA NITROGEN 11 mg/dL (7-26); BUN/CREATININE RATIO 20 (6-25); CALCIUM 8.7 mg/dL (8.4-10.2); CARBON DIOXIDE 28 mmol/L (22-29); CHLORIDE 100 mmol/L (98-107); CREATININE, SERUM 0.54 mg/dL (0.57-1.11); EST GLOMERULAR FILTRATION RATE > 60 ML/MIN (60-); GLUCOSE 119 mg/dL (74-118); POTASSIUM 3.6 mmol/L (3.5-5.1); SODIUM 135 mmol/L (136-145)
--- NOTE | 2018-10-20 07:10 | NUR ---
PATIENT IN STABLE CONDITION WITH NO S/S OF RESPIRATORY DISTRESS. PATIENT C/O LOWER ABD PAIN 08/07- NIGHT NURSE ADMINISTERED PAIN MEDICINE DURING BEDSIDE ROUNDING. IV FLUIDS INFUSING. DANIEL INTACT AND DRAINING. MOTHER PRESENT IN ROOM. CALL LIGHT IS WITHIN REACH, PATIENT INSTRUCTED TO CALL FOR ASSISTANCE NEEDED.
--- NOTE | 2018-10-20 07:18 | NUR ---
Completed BS rounds with morning nurse. Pt alert and orient. Sitting in bed HOB 60 degrees. No acute distress noted. c/o 6/10 low abd pain received prn morphine.
[2018-10-20 07:48] LABS: LYMPHOCYTES % (MANUAL) 9 % (19-48); MONOCYTES % (MANUAL) 3 % (3.4-9.0); NEUTROPHILS % (MANUAL) 88 % (40-74); PLATELET ESTIMATE MODERATELY INCREASED; RBC MORPHOLOGY COMMENT NORMAL
[2018-10-20] MEDS: IRON SUCROSE 100 MG in SODIUM CHLORIDE 0.9% 100 ML 100 ML IV SCH (08:18)
[2018-10-20] MEDS: FOLIC ACID 1 MG TAB PO SCH (08:18)
[2018-10-20] MEDS: LACTOBACILLUS ACIDOPHILUS CAPSULE PO SCH ×3 (08:18→21:50)
[2018-10-20] MEDS: HYDROCODONE/APAP 5MG-325MG TAB PO PRN ×2 (09:30→19:10)
--- NOTE | 2018-10-20 14:29 | NUR ---
Nutrition Follow-up Note RD Recommendation(s) for Physician: The patient meets criteria for unspecified SEVERE protein-calorie malnutrition. - Continue GI soft diet as ordered - Rec MVi w/ folic acid Plan of Care: RD following, monitoring for tolerance and adequacy Nutrition reason for involvement: Follow up RD Assessment 10/20 Visited pt in the room. Pt reported good appetite. Tolerating current diet. Pt still has mild rectal bleeding. No other GI complains reported. Currently on Dilaudid for pain management. Pt is not interested in any oral nutrition supplements. Will continue to monitor and follow. 10/17 38yo F, who was admitted for rectal bleeding. Negative C diff. Visited pt in the room. Pt reported poor appetite and 20lbs weight loss in 3 weeks due to hx of ulcerative colitis. Pt has had rectal bleeding for the last few weeks. Pt denied any nausea or vomiting. Tolerating clear liquid so far. Pt has no issue with chewing or swallowing. Pt has some moderate fat/muscle loss upon observation. Pt was given handouts and diet education on ulcerative colitis in the past. Not interested in any education at this time. RD will return to assess in the next few days as pt appeared to be uncomfortable. Principal Problems/Diagnoses: dehydration, rectal bleeding, colitis PMH: no H&P in chart GI: abdomen flat, soft, non-tender, flatus present, bloody stool Skin: no pressure wound noted Labs: (10/19) Na 135 L, Creatinine 0.54 L, Glucose 119 H (10/17) Na 120 L, K 3.4 L, creatinine 0.51 L, Ca 7.9 L, Iron 19 L, TIBC 150L, Transferrin 107 L, Ferritin 483 H, vitamin B12 >2000 H, Folate 2.8 L Meds: NaCl, dilaudid, zofran, folic acid, probiotics, solu-medrol , protonix Ht: 67in Wt: 118lb BMI: 18.5kg/m2 IBW: 135lb +/- 10% Malnutrition Evaluation (10/17/2018) The patient meets criteria for unspecified SEVERE protein-calorie malnutrition. Energy intake: <50% of estimated energy requirements for >5 days Weight loss: >2% in 1week (Acute) Fat loss: Moderate hollow look around orbital region Muscle loss: Moderate temporal depression, protrusion of acromion process Supporting Evidence: Fluid accumulation: unable to evaluate Functional Status: no changes Nutrition Prescription (Diet Order): GI soft diet Estimated Nutritional Needs: Calories: 1620-1890kcal (30-35kcal/kg/d) Weight used: CBW Protein: 81 - 108g (1.5 2g/kg/d) Weight used: CBW Diet Adequacy: meeting calorie needs, meeting protein needs Diet Education Needs Assessment: Diet education indicated, but patient not appropriate for education at this time. Nutrition Care Level: mod Nutrition Diagnosis: Severe malnutrition related inadequate oral intake as evidenced by poor appetite x 3 weeks, weight loss, and muscle/ fat loss. Goal: Patient will meet 75-100% of estimated needs by follow up Progress: Goal met Interventions: Modified diet, Multivitamin/mineral supplement therapy Monitoring/Evaluation: Total energy intake, Total protein intake, Prescription medication, Modified diet, Weight change Signed: Marcela Chen MS, RD, LD
[2018-10-21] VITALS (7 sets, daily range): BP systolic 93–107; BP diastolic 56–61
[2018-10-21] MEDS: ONDANSETRON HCL INJ 2MG/ML 2ML 2 MG/ML VIAL IV PRN ×6 (00:05→21:16)
[2018-10-21] MEDS: HYDROMORPHONE 2MG/ML 2 MG/ML ML IV PRN ×6 (00:05→21:16)
[2018-10-21] MEDS: PANTOPRAZOLE 40 MG 10ML VIAL IV SCH ×2 (03:44→15:19)
[2018-10-21] MEDS: METHYLPREDNISOLONE SOD SUCC 40 MG/ML VIAL 1ML IV SCH ×3 (05:59→21:10)
[2018-10-21] MEDS: DICYCLOMINE HCL 20 MG TAB PO SCH ×3 (05:59→21:10)
[2018-10-21] MEDS: BALSALAZIDE 750 MG PO SCH ×3 (05:59→21:10)
[2018-10-21 06:06] LABS: HEMATOCRIT 29.1 % (34.2-44.1); HEMOGLOBIN 9.2 g/dL (12.0-16.0); MEAN CORPUSCULAR HEMOGLOBIN 30.4 pg (28-32); MEAN CORPUSCULAR HGB CONC 31.6 g/dL (31-35); PLATELET COUNT 368 x10e3/uL (140-360); RED BLOOD COUNT 3.03 x10e6/uL (3.6-5.1)
[2018-10-21 06:25] LABS: ANION GAP 13.6 mmol/L (8-16); BLOOD UREA NITROGEN 11 mg/dL (7-26); BUN/CREATININE RATIO 18 (6-25); CALCIUM 8.7 mg/dL (8.4-10.2); CARBON DIOXIDE 27 mmol/L (22-29); CHLORIDE 99 mmol/L (98-107); EST GLOMERULAR FILTRATION RATE > 60 ML/MIN (60-); GLUCOSE 131 mg/dL (74-118); POTASSIUM 3.6 mmol/L (3.5-5.1); SODIUM 136 mmol/L (136-145)
[2018-10-21 07:13] LABS: BAND NEUTROPHILS % (MANUAL) 1 %; MONOCYTES % (MANUAL) 2 % (3.4-9.0); NEUTROPHILS % (MANUAL) 81 % (40-74); PLATELET ESTIMATE ADEQUATE; RBC MORPHOLOGY COMMENT NORMAL
[2018-10-21 07:14] LABS: LYMPHOCYTES % (MANUAL) 16 % (19-48)
--- NOTE | 2018-10-21 07:15 | NUR ---
PATIENT IS ALERT AND IS IN STABLE CONDITION WITH NO S/S OF RESPIRATORY DISTRESS. PAIN C/O LOWER ABD PAIN 6/10- PAIN MEDICATION IS NOT AVAILABLE AT THIS TIME AND PATIENT WANTS TO WAIT FOR DILAUDID AND ZOFRAN. DANIEL INTACT AND DRAINING- URINE IS LIGHT NEVAEH WITH SEDIMENTS. CALL LIGHT IS WITHIN REACH, PATIENT INSTRUCTED TO CALL FOR ASSISTANCE NEEDED.
[2018-10-21] MEDS: IRON SUCROSE 100 MG in SODIUM CHLORIDE 0.9% 100 ML 100 ML IV SCH (08:37)
[2018-10-21] MEDS: FOLIC ACID 1 MG TAB PO SCH (08:37)
[2018-10-21] MEDS: LACTOBACILLUS ACIDOPHILUS CAPSULE PO SCH ×3 (08:37→20:10)
[2018-10-21] MEDS ORDERED: FUROSEMIDE INJ 10 MG/ML 2 ML VIAL IV NR (12:30)
[2018-10-21] MEDS: CEFEPIME 1GM/NS 0.9% 50 ML 50 ML IV SCH ×2 (12:54→23:37)
[2018-10-21] MEDS: HYDROCODONE/APAP 5MG-325MG TAB PO PRN ×2 (15:19→23:09)
--- NOTE | 2018-10-21 17:27 | Consultation ---
DATE OF CONSULTATION: 10/21/2018 HISTORY OF PRESENT ILLNESS: Ms. Slaughter is a young lady with no significant past medical history except for overweight and status post gastric sleeve surgery. About a month ago, she started having bloody bowel movement. Dr. Jose Reyna evaluated her, found to have ulcerative colitis. Because of the exacerbation of her symptoms, she was admitted for better management. She was started on Solu-Medrol and somewhat she is better now. Her stools start to form. She has no more stool incontinent as before and the bleeding has subsided dramatically. I have been asked to see her because I am covering for Dr. Reyna's patient. PAST SURGICAL HISTORY: She had no surgery before, except for gastric sleeve. ALLERGIES: SHE IS NOT ALLERGIC TO ANY MEDICATION. CURRENT MEDICATIONS: 1. Solu-Medrol 40 mg every 8 hours. 2. Bentyl 20 mg. 3. Cefepime. 4. Dilaudid. 5. Zofran. 6. Iron. 7. Folic acid. 8. Lactobacillus. 9. Protonix. 10. Lasix. FAMILY HISTORY: Her father is diabetic and had prostate cancer. REVIEW OF SYSTEMS: Unremarkable. PHYSICAL EXAMINATION: GENERAL: Awake, alert, and oriented. VITAL SIGNS: Afebrile. Blood pressure 99/56, normal sclerae. NECK: Supple. LUNGS: Clear. HEART: Irregularly irregular rhythm. ABDOMEN: Mildly tender, soft. No acute sign. EXTREMITIES: No edema. CENTRAL NERVOUS SYSTEM: Motor function grossly intact. LABORATORY DATA: Iron saturation 13%. BUN 11, creatinine 0.6, sodium 136, potassium 3.6. White cell count 10, hemoglobin 9, hematocrit 29, platelets 368. Liver function unremarkable. Folate is low. She is being replaced. B12 normal. Urinalysis is unremarkable. NAFISA 1 to 320. Calprotectin 900, lactoferrin is positive. IMPRESSION: New onset of ulcerative colitis diagnosed by Dr. Jose Reyna. I will add to her treatment Apriso and Canasa. Checking her serum reactive protein. We will keep her on GI soft, lactose-free diet and we will follow. Doc Trammell MD RD/MODL /[id number]
--- NOTE | 2018-10-21 19:23 | NUR ---
PATIENT IS IN STABLE CONDITION WITH NO S/S OF RESPIRATORY DISTRESS. PATIENT C/O PAIN DURING BEDSIDE ROUNDING. DANIEL INTACT AND DRAINING. CALL LIGHT IS WITHIN REACH, PATIENT INSTRUCTED TO CALL FOR ASSISTANCE NEEDED. BEDSIDE REPORT GIVEN TO ONCOMING NURSE.
--- NOTE | 2018-10-21 19:40 | NUR ---
PT IS RESTING IN BED. RESPIRATION IS EVEN AND UNLABORED, NO DISTRESS NOTED. BED IN THE LOWEST POSITION, LOCKED, AND CALL LIGHT WITHIN REACH. WILL CONTINUE TO MONITOR.
[2018-10-21] MEDS ORDERED: MESALAMINE 1,000 MG SUPP RC SCH (21:00)
[2018-10-22] VITALS (7 sets, daily range): BP systolic 90–101; BP diastolic 50–63
[2018-10-22] MEDS: HYDROMORPHONE 2MG/ML 2 MG/ML ML IV PRN ×6 (01:15→22:00)
[2018-10-22] MEDS: ONDANSETRON HCL INJ 2MG/ML 2ML 2 MG/ML VIAL IV PRN ×6 (01:15→23:00)
[2018-10-22] MEDS: PANTOPRAZOLE 40 MG 10ML VIAL IV SCH ×2 (02:57→14:00)
[2018-10-22] MEDS: DICYCLOMINE HCL 20 MG TAB PO SCH ×3 (05:14→20:56)
[2018-10-22] MEDS: METHYLPREDNISOLONE SOD SUCC 40 MG/ML VIAL 1ML IV SCH ×3 (05:14→20:56)
[2018-10-22] MEDS: BALSALAZIDE 750 MG PO SCH ×3 (05:14→20:48)
[2018-10-22 06:46] LABS: ANION GAP 11.3 mmol/L (8-16); BLOOD UREA NITROGEN 11 mg/dL (7-26); BUN/CREATININE RATIO 21 (6-25); CARBON DIOXIDE 30 mmol/L (22-29); CHLORIDE 97 mmol/L (98-107); CREATININE, SERUM 0.52 mg/dL (0.57-1.11); EST GLOMERULAR FILTRATION RATE > 60 ML/MIN (60-); GLUCOSE 123 mg/dL (74-118); POTASSIUM 3.3 mmol/L (3.5-5.1); SODIUM 135 mmol/L (136-145)
--- NOTE | 2018-10-22 07:00 | NUR ---
PATIENT IN STABLE CONDITION WITH NO S/S OF RESPIRATORY DISTRESS. PATIENT STATES LOWER ABD PAIN 6/10. DANIEL INTACT AND DRAINING- URINE LIGHT NEVAEH AND CLEAR. CALL LIGHT IS WITHIN REACH, PATIENT INSTRUCTED TO CALL FOR ASSISTANCE NEEDED.
[2018-10-22] MEDS: HYDROCODONE/APAP 5MG-325MG TAB PO PRN ×2 (08:03→19:38)
[2018-10-22] MEDS: LACTOBACILLUS ACIDOPHILUS CAPSULE PO SCH ×3 (08:03→20:56)
[2018-10-22] MEDS: FOLIC ACID 1 MG TAB PO SCH (08:03)
[2018-10-22] MEDS: IRON SUCROSE 100 MG in SODIUM CHLORIDE 0.9% 100 ML 100 ML IV SCH (08:05)
[2018-10-22] MEDS: FUROSEMIDE INJ 10 MG/ML 2 ML VIAL IV SCH (08:14)
[2018-10-22] MEDS ORDERED: MESALAMINE 0.375 GM CAPCR PO SCH (09:00)
[2018-10-22] MEDS ORDERED: POTASSIUM CHLORIDE 20 MEQ TAB CR PO NR (11:45)
[2018-10-22] MEDS: CEFEPIME 1GM/NS 0.9% 50 ML 50 ML IV SCH (11:48)
--- NOTE | 2018-10-22 18:51 | NUR ---
PATIENT RESTING IN BED- IN STABLE CONDITION WITH NO S/S OF RESPIRATORY DISTRESS. NO PAIN INDICATED AT THIS TIME- PATIENT RECENTLY RECEIVED PAIN MEDICATION. DANIEL INTACT AND DRAINING. CALL LIGHT IS WITHIN REACH, PATIENT INSTRUCTED TO CALL FOR ASSISTANCE NEEDED. BEDSIDE REPORT GIVEN TO ONCOMING NURSE.
--- NOTE | 2018-10-22 19:25 | NUR ---
Received patient from day nurse, patient is stable, denies any concerns at this time. safety and fall precautions maintained as per hospital protocol: bed in lowest position and locked, needed items beside bed and call millard closed to patient, patient instructed to use it to call nurses for any help needed, patient verbalized understanding, patient is currently stable will continue to monitor. patient educated on delg[facility]illo care and supplied with needed items for cleansing, patient prefers [facility] self care.
[2018-10-23] VITALS (8 sets, daily range): BP systolic 95–110; BP diastolic 51–61
[2018-10-23] MEDS: HYDROMORPHONE 2MG/ML 2 MG/ML ML IV PRN ×6 (02:10→23:26)
[2018-10-23] MEDS: CEFEPIME 1GM/NS 0.9% 50 ML 50 ML IV SCH ×2 (02:37→14:05)
[2018-10-23] MEDS: PANTOPRAZOLE 40 MG 10ML VIAL IV SCH ×2 (02:55→15:29)
[2018-10-23] MEDS: BALSALAZIDE 750 MG PO SCH ×3 (05:14→22:00)
[2018-10-23 05:59] LABS: HEMATOCRIT 26.4 % (34.2-44.1); HEMOGLOBIN 8.5 g/dL (12.0-16.0); MEAN CORPUSCULAR HEMOGLOBIN 30.4 pg (28-32); MEAN CORPUSCULAR HGB CONC 32.2 g/dL (31-35); MEAN CORPUSCULAR VOLUME 94.3 fL (81-99); PLATELET COUNT 353 x10e3/uL (140-360); RED CELL DISTRIBUTION WIDTH 13.4 % (11.7-14.4)
[2018-10-23] MEDS: DICYCLOMINE HCL 20 MG TAB PO SCH ×3 (06:06→22:00)
[2018-10-23] MEDS: METHYLPREDNISOLONE SOD SUCC 40 MG/ML VIAL 1ML IV SCH ×3 (06:06→22:00)
[2018-10-23] MEDS: ONDANSETRON HCL INJ 2MG/ML 2ML 2 MG/ML VIAL IV PRN ×4 (06:07→23:26)
[2018-10-23 06:18] LABS: ANION GAP 9.6 mmol/L (8-16); BLOOD UREA NITROGEN 10 mg/dL (7-26); BUN/CREATININE RATIO 20 (6-25); CALCIUM 8.3 mg/dL (8.4-10.2); CARBON DIOXIDE 33 mmol/L (22-29); CHLORIDE 97 mmol/L (98-107); CREATININE, SERUM 0.49 mg/dL (0.57-1.11); EST GLOMERULAR FILTRATION RATE > 60 ML/MIN (60-); GLUCOSE 101 mg/dL (74-118); POTASSIUM 3.6 mmol/L (3.5-5.1); SODIUM 136 mmol/L (136-145)
--- NOTE | 2018-10-23 07:17 | NUR ---
Patient endorsed to next shift for continuity of care.
[2018-10-23] MEDS: FOLIC ACID 1 MG TAB PO SCH (08:52)
[2018-10-23] MEDS: IRON SUCROSE 100 MG in SODIUM CHLORIDE 0.9% 100 ML 100 ML IV SCH (08:52)
[2018-10-23] MEDS: FUROSEMIDE INJ 10 MG/ML 2 ML VIAL IV SCH (08:52)
[2018-10-23] MEDS: LACTOBACILLUS ACIDOPHILUS CAPSULE PO SCH ×3 (08:52→20:50)
[2018-10-23] MEDS: HYDROCODONE/APAP 5MG-325MG TAB PO PRN ×2 (09:00→20:49)
--- NOTE | 2018-10-23 19:09 | NUR ---
Received change of shift report. Walking rounds completed.
--- NOTE | 2018-10-23 20:26 | NUR ---
RECEIVED PT IN BED AOX3 .C/O PAIN .FAMILY AT THE BEDSIDE .CALL RAMIREZ WITH IN REACH .CONTINUE TO MONITOR
[2018-10-23] MEDS ORDERED: HYDROMORPHONE 2MG/ML 2 MG/ML ML IV PRN (23:15)
[2018-10-24] VITALS (8 sets, daily range): BP systolic 93–116; BP diastolic 56–68
[2018-10-24] MEDS: CEFEPIME 1GM/NS 0.9% 50 ML 50 ML IV SCH ×2 (00:30→11:36)
[2018-10-24] MEDS: PANTOPRAZOLE 40 MG 10ML VIAL IV SCH ×2 (03:00→15:31)
[2018-10-24] MEDS: HYDROMORPHONE 2MG/ML 2 MG/ML ML IV PRN ×4 (04:00→21:35)
[2018-10-24] MEDS ORDERED: IOPAMIDOL 370 MG/ML 200 ML INFUS..BTL INJ ONE (05:49)
[2018-10-24] MEDS ORDERED: SODIUM CHLORIDE 0.9% 50ML 50 ML ONE (05:49)
[2018-10-24] MEDS: HYDROCODONE/APAP 5MG-325MG TAB PO PRN (06:15)
--- NOTE | 2018-10-24 06:17 | Diagnostic Imaging Report ---
EXAMINATION: CT of the abdomen and pelvis with contrast. TECHNIQUE: Spiral CT images of the abdomen and pelvis were performed from the lung bases to the lesser trochanters after the intravenous administration of 100 cc Isovue-370. Coronal and sagittal reformatted images were obtained. COMPARISON: 09/22/2018 CLINICAL HISTORY:Ulcerative colitis, abdominal pain DISCUSSION: ABDOMEN/PELVIS: LOWER THORAX:New trace bilateral pleural effusions right larger than left with passive atelectasis of the dependent lower lobes. HEPATOBILIARY: No focal hepatic lesions. No intra-or extrahepatic biliary ductal dilation. Collapsed gallbladder with multiple calculi. SPLEEN: No splenomegaly. PANCREAS: No focal masses or ductal dilatation. ADRENALS: No adrenal nodules. KIDNEYS/URETERS: Unchanged right renal cyst. No additional focal renal lesions. No hydronephrosis or calculi. PELVIC ORGANS/BLADDER: Osei catheter retention balloon in the urinary bladder with air in the nondependent portion. Uterus is anteflexed and appears normal. No adnexal mass. PERITONEUM/RETROPERITONEUM: Small volume right paracolic gutter and pelvic ascites, 10-20 Hounsfield units in attenuation. No pneumoperitoneum. LYMPH NODES: No pelvic sidewall, retroperitoneal, or mesenteric lymphadenopathy. VESSELS: Abdominal aorta, major branch vessels, and iliac arterial systems are well-visualized and patent; portal vein, splenic vein, and central superior mesenteric vein are patent.. GI TRACT: The distal large bowel is collapsed and poorly evaluated. Proximally, there is a large amount of gas and fecal material within the colon, without alexandrea wall thickening. The appendix is not definitively identified. Postsurgical changes of the stomach. No small bowel dilatation to suggest obstruction. BONES AND SOFT TISSUE: No bony destructive lesions. Anasarca. IMPRESSION: Interval development of mild fluid overload evidenced by trace bilateral pleural effusions, small volume ascites, and anasarca. Otherwise no acute intra-abdominal or pelvic CT abnormality or significant interval change relative to 09/22/2018 Cholelithiasis. Signed by: Dr. Burt Summers M.D. on 10/24/2018 6:14 AM
[2018-10-24] MEDS: FUROSEMIDE INJ 10 MG/ML 2 ML VIAL IV SCH (06:22)
[2018-10-24] MEDS: METHYLPREDNISOLONE SOD SUCC 40 MG/ML VIAL 1ML IV SCH ×3 (06:22→21:35)
[2018-10-24] MEDS: DICYCLOMINE HCL 20 MG TAB PO SCH ×3 (06:23→21:35)
[2018-10-24 07:03] LABS: BASOPHILS % 0.1 % (0.0-1.0); HEMOGLOBIN 9.7 g/dL (12.0-16.0); LYMPHOCYTES # (AUTO) 0.6 (1.0-3.2); LYMPHOCYTES % 4.7 % (18.0-39.1); MEAN CORPUSCULAR HGB CONC 32.3 g/dL (31-35); MEAN CORPUSCULAR VOLUME 95.8 fL (81-99); MONOCYTES # (AUTO) 0.3 (0.2-0.8); MONOCYTES % 2.6 % (4.4-11.3); NEUTROPHILS # (AUTO) 11.7 (2.1-6.9); NEUTROPHILS % 90.9 % (38.7-80.0); PLATELET COUNT 365 x10e3/uL (140-360); RED BLOOD COUNT 3.13 x10e6/uL (3.6-5.1); RED CELL DISTRIBUTION WIDTH 13.6 % (11.7-14.4); RETICULOCYTE % 2.4 % (0.8-2.2)
[2018-10-24 07:21] LABS: ALANINE AMINOTRANSFERASE 31 IU/L (0-55); ALBUMIN/GLOBULIN RATIO 1.2 (0.8-2.0); ALKALINE PHOSPHATASE 95 IU/L (40-150); ANION GAP 10.7 mmol/L (8-16); BLOOD UREA NITROGEN 9 mg/dL (7-26); BUN/CREATININE RATIO 17 (6-25); CALCIUM 8.8 mg/dL (8.4-10.2); CARBON DIOXIDE 33 mmol/L (22-29); CHLORIDE 93 mmol/L (98-107); CREATININE, SERUM 0.52 mg/dL (0.57-1.11); EST GLOMERULAR FILTRATION RATE > 60 ML/MIN (60-); GLUCOSE 126 mg/dL (74-118); POTASSIUM 3.7 mmol/L (3.5-5.1); SODIUM 133 mmol/L (136-145)
--- NOTE | 2018-10-24 07:24 | NUR ---
PT C/O PAIN DURING THE NIGHT .FAMILY AT THE BEDSIDE .BEDSIDE REPOT GIVEN TO THE ONCOMING NURSE
--- NOTE | 2018-10-24 07:27 | NUR ---
PAIN MEDICATION FELL OFF AND CALLED DR WEST AND RENEWED THE MEDICATION .
--- NOTE | 2018-10-24 07:39 | NUR ---
patient up in bed, AAOx3, Abd pain 5/10 on pain scale, no distress noted, continue monitoring
[2018-10-24] MEDS: FOLIC ACID 1 MG TAB PO SCH (08:33)
[2018-10-24] MEDS: LACTOBACILLUS ACIDOPHILUS CAPSULE PO SCH ×3 (08:33→21:35)
[2018-10-24] MEDS: IRON SUCROSE 100 MG in SODIUM CHLORIDE 0.9% 100 ML 100 ML IV SCH (08:33)
[2018-10-24] MEDS: ONDANSETRON HCL INJ 2MG/ML 2ML 2 MG/ML VIAL IV PRN ×3 (08:34→21:35)
--- NOTE | 2018-10-24 10:49 | NUR ---
CALL Recvd from Dr Dima Reyna, he aware about CAT abd result, new orders recvd
[2018-10-24] MEDS ORDERED: BISACODYL 5 MG TAB EC PO ONE (11:00)
[2018-10-24] MEDS: BISACODYL 5 MG TAB EC PO SCH ×5 (13:12→16:43)
[2018-10-24] MEDS ORDERED: CITRATE OF MAGNESIA 300ML BOTTLE PO NR ×3 (15:15→23:00)
--- NOTE | 2018-10-24 16:18 | NUR ---
Per Dr Dc Reyna keep the Osei's catheter in place
--- NOTE | 2018-10-24 16:39 | NUR ---
Spoke to Dr. Reyna regarding POC. He states pt still having abdominal pain, currently being prepped for scope tomorrow.
--- NOTE | 2018-10-24 22:15 | NUR ---
Seen By Dr. Glenis Reyna new orders received.
--- NOTE | 2018-10-24 23:10 | NUR ---
Patient refused citrate of magnesia. Dr. Dima Reyna made aware.
--- NOTE | 2018-10-24 23:15 | NUR ---
Spoke with Dr. Maureen Gaytan regarding consultation. No new orders.
[2018-10-25] VITALS (7 sets, daily range): BP systolic 95–130; BP diastolic 50–69
[2018-10-25] MEDS: CEFEPIME 1GM/NS 0.9% 50 ML 50 ML IV SCH ×2 (00:06→12:13)
--- NOTE | 2018-10-25 01:00 | NUR ---
Patient refused shower and states she had a bath yesterday.
[2018-10-25] MEDS: HYDROMORPHONE 1MG/1ML INJ IV PRN ×5 (01:35→20:05)
[2018-10-25] MEDS: ONDANSETRON HCL INJ 2MG/ML 2ML 2 MG/ML VIAL IV PRN ×4 (01:35→20:05)
[2018-10-25] MEDS: PANTOPRAZOLE 40 MG 10ML VIAL IV SCH ×2 (03:05→15:00)
[2018-10-25] MEDS: HYDROCODONE/APAP 5MG-325MG TAB PO PRN ×2 (04:43→12:13)
[2018-10-25] MEDS: METHYLPREDNISOLONE SOD SUCC 40 MG/ML VIAL 1ML IV SCH (05:50)
[2018-10-25 05:55] LABS: BASOPHILS % 0.1 % (0.0-1.0); HEMATOCRIT 27.8 % (34.2-44.1); LYMPHOCYTES # (AUTO) 0.5 (1.0-3.2); LYMPHOCYTES % 5.9 % (18.0-39.1); MEAN CORPUSCULAR HEMOGLOBIN 30.6 pg (28-32); MEAN CORPUSCULAR HGB CONC 32.4 g/dL (31-35); MEAN CORPUSCULAR VOLUME 94.6 fL (81-99); MONOCYTES # (AUTO) 0.3 (0.2-0.8); MONOCYTES % 4.1 % (4.4-11.3); NEUTROPHILS # (AUTO) 7.3 (2.1-6.9); NEUTROPHILS % 88.9 % (38.7-80.0); PLATELET COUNT 318 x10e3/uL (140-360); RED BLOOD COUNT 2.94 x10e6/uL (3.6-5.1); RED CELL DISTRIBUTION WIDTH 13.7 % (11.7-14.4)
[2018-10-25] MEDS: FUROSEMIDE INJ 10 MG/ML 2 ML VIAL IV SCH ×2 (06:05→20:15)
[2018-10-25] MEDS: DICYCLOMINE HCL 20 MG TAB PO SCH ×3 (06:05→22:20)
[2018-10-25 06:13] LABS: ANION GAP 10.8 mmol/L (8-16); BLOOD UREA NITROGEN 9 mg/dL (7-26); BUN/CREATININE RATIO 18 (6-25); CALCIUM 8.4 mg/dL (8.4-10.2); CARBON DIOXIDE 33 mmol/L (22-29); CHLORIDE 95 mmol/L (98-107); CREATININE, SERUM 0.49 mg/dL (0.57-1.11); EST GLOMERULAR FILTRATION RATE > 60 ML/MIN (60-); GLUCOSE 95 mg/dL (74-118); POTASSIUM 3.8 mmol/L (3.5-5.1); SODIUM 135 mmol/L (136-145)
--- NOTE | 2018-10-25 07:00 | NUR ---
RECEIVED AM REPORT FROM GISSELL FARIAS AND MORNING ROUNDS DONE. PT IS ALERT, NO S/S OF DISTRESS. CALL LIGHT WITHIN REACH, PT INSTRUCTED TO CALL NURSE FOR HELP. FAMILY IS AT THE BEDSIDE
[2018-10-25] MEDS: FOLIC ACID 1 MG TAB PO SCH (09:32)
[2018-10-25] MEDS: LACTOBACILLUS ACIDOPHILUS CAPSULE PO SCH ×3 (09:32→20:15)
[2018-10-25] MEDS: IRON SUCROSE 100 MG in SODIUM CHLORIDE 0.9% 100 ML 100 ML IV SCH (09:32)
--- NOTE | 2018-10-25 15:21 | Consultation ---
DATE OF CONSULTATION: 10/25/2018 Urology Consultation REASON FOR CONSULTATION: Urinary retention. HISTORY OF PRESENT ILLNESS: Morena Slaughter is a 38-year-old woman, who has never had any urological problems. She underwent workup and found to have ulcerative colitis. Following colonoscopy, the patient had some issues. She had difficulty urinating. She underwent straight catheterization due to difficulty urinating with the next day still could not urinate and after having a bladder volume by bladder scanner of 447 mL with inability to void, a Osei catheter was placed and unfortunately the amount present in the bladder upon catheterization was not documented at that time. The patient denies previous urolithiasis and previous hematuria. Denies ever having urinary tract infections. She denies ever seeing a urologist. PAST MEDICAL AND SURGICAL HISTORY: 1. Status post gastric sleeve surgery with losing weight from 270 pounds to 130 pounds. 2. 3, para 3, by spontaneous vaginal delivery. 3. History of smoking in the past, which the patient has quit. 4. Ulcerative colitis. ALLERGIES: NONE KNOWN. CURRENT MEDICATIONS: Please refer to the MAR. FAMILY HISTORY: Noncontributory to the active urological problems, although the patient's father has had prostate cancer. REVIEW OF SYSTEMS: Discussed as above in the history of illness and past medical history, otherwise negative for all systems. SOCIAL HISTORY: The patient denies current smoking, ethanol, or drug use. She is studying accounting. PHYSICAL EXAMINATION: GENERAL: The patient was seen with nurse, Lissette, in the room. ABDOMEN: Soft, nondistended, nontender without costovertebral angle tenderness. GENITOURINARY: A Osei catheter in place, draining the yellow urine out. For the remaining physical examination systems, please refer to the admission history and physical on the chart, as well as the other consultants notes. LABORATORY STUDIES: The patient's urine culture revealed an E. coli that was resistant to fluoroquinolones and ampicillin, but otherwise sensitive to all other antibiotics tested. White blood cell count is 8200, it was up to 12,910, but since has normalized. The patient's hemoglobin is 9, platelets are normal at 318,000. The patient's sodium was slightly low at 135. Her calcium was low at 8.3, but has since normalized. The patient's potassium was also low earlier at 3.3, but has also normalized. CT scan of the abdomen and pelvis revealed cholelithiasis, but was otherwise unremarkable except for unchanged right renal cyst. ASSESSMENT: 1. Urinary retention. 2. Urinary tract infection. 3. Leukocytosis. 4. Anemia. 5. Hyponatremia. 6. Hypercalcemia, that improved. 7. Cholelithiasis. 8. Hyperkalemia, that improved. 9. Right renal cyst. 10. Osei catheter in situ. PLAN: 1. I will order repeat urine culture and sensitivity and document treatment. 2. The patient will be discharged home with a Osei catheter in place, it can be put to a leg bag and change between leg bag and bedside bag. The patient is to follow up for urodynamic study in the office. Thank you very much for involving us in the care of your patient. We will be happy to follow her along with you as well as an outpatient. Chao MD Lucila [place]/MODL /[id number] cc: MD Dariel MERINO DO Maurice S Haddad, MD
[2018-10-25] MEDS ORDERED: PROPOFOL IV EMULSION 10 MG/ML 50 ML VIAL ONE (18:21)
[2018-10-25] MEDS ORDERED: GLUCAGON FOR INJ 1 MG VIAL ONE (18:21)
[2018-10-25] MEDS ORDERED: HYDROCORTISONE 100 MG/60 ML ENEMA RC NR (18:30)
--- NOTE | 2018-10-25 18:34 | NUR ---
pharmacy called and stated that they don't carry the hydrocortisone enemas that Dr. Dima Reyna ordered. spoke with Dr. Reyna and he specifically wants the hydrocortisone enema to treat the patient for ulcerative left colon. spoke with pharmacy and they are going to order the enema tonight and it will be delivered tomorrow 10/26/18
[2018-10-25] MEDS ORDERED: FENTANYL CITRATE/PF 100MCG/2 ML INJ ONE ×2 (18:49→18:54)
[2018-10-25] MEDS ORDERED: PROMETHAZINE HCL (IM) 25 MG/ML VIAL ONE (18:50)
[2018-10-25] MEDS ORDERED: ONDANSETRON HCL INJ 2MG/ML 2ML 2 MG/ML VIAL ONE (18:50)
[2018-10-25] MEDS ORDERED: MIDAZOLAM HCL 2 MG/2 ML VIAL ONE (18:54)
[2018-10-25] MEDS ORDERED: HYDROMORPHONE 2MG/ML 2 MG/ML ML ONE (19:40)
[2018-10-25 19:55] LABS: WBC,FECAL (FECAL LACTOFERRIN) POSITIVE (NEGATIVE)
--- NOTE | 2018-10-25 20:00 | NUR ---
PATIENT HAS RETURNED FROM PACU.
--- NOTE | 2018-10-25 20:11 | Operative Report ---
DATE OF PROCEDURE: 10/25/2018 SURGEON: Jose Reyna MD PROCEDURE: Colonoscopy with biopsies. INDICATION FOR PROCEDURE: History of severe left-sided ulcerative colitis. Colonoscopy is being done to re-evaluate response after several days of IV steroids. MEDICATIONS: The patient was done under MAC, please see anesthesiologist's note. PROCEDURE IN DETAIL: With the patient in the left lateral decubitus position, a flexible fiberoptic Olympus colonoscope was inserted into the rectum with ease and advanced all the way to the distal transverse colon. The mucosa overlying the transverse colon grossly appeared to be within normal limits. The mucosa overlying the descending and sigmoid was diffusely ulcerated with possibly some minimal improvement after several days of IV steroids. Biopsies were obtained and stool also was secured and sent for the appropriate stool studies. The proximal two-thirds of the rectum appeared relatively spared, but the distal rectum was diffusely ulcerated and biopsies were obtained. The scope was subsequently withdrawn and the patient tolerated the procedure well. IMPRESSION: 1. Ulcerated left colon, severe, biopsies obtained and sent to stain for Cytomegalovirus. 2. Ulcerated distal rectum with relative sparing of the proximal two-thirds of the rectum. Biopsies obtained. PLAN: Follow up histology. Stain biopsies for CMV. Follow up stool studies. Initiate Cortenema b.i.d. If the patient does not turn the corner in the next 3 days, we will consider initiating a biologic. Jose Reyna MD [facility]/JOSE /[id number] cc: Dariel Tucker DO
--- NOTE | 2018-10-25 20:30 | NUR ---
PATIENT IS AOX3, NO SIGNS OF RESPIRATORY DISTRESS NOTED. FAMILY MEMBER AT BEDSIDE, AND PATIENT COMPLAINS OF PAIN OF 8. PATIENT IS SITTING IN RECLINER, CALL LIGHT WITHIN REACH, WILL CONTINUE TO MONITOR.
--- NOTE | 2018-10-25 22:15 | NUR ---
REMOVED PATIENT'S DANIEL CATHETER VIA PHYSICIAN'S ORDER. NO SIGNS OF DISTRESS FROM THE PATIENT NOTED.
[2018-10-26] VITALS (7 sets, daily range): BP systolic 93–107; BP diastolic 52–58
[2018-10-26] MEDS: CEFEPIME 1GM/NS 0.9% 50 ML 50 ML IV SCH ×3 (01:00→23:30)
[2018-10-26] MEDS: HYDROMORPHONE 1MG/1ML INJ IV PRN ×4 (01:31→23:30)
[2018-10-26] MEDS: ONDANSETRON HCL INJ 2MG/ML 2ML 2 MG/ML VIAL IV PRN ×4 (01:31→23:30)
[2018-10-26] MEDS: PANTOPRAZOLE 40 MG 10ML VIAL IV SCH ×2 (03:44→15:00)
[2018-10-26] MEDS: DICYCLOMINE HCL 20 MG TAB PO SCH ×3 (06:53→21:05)
[2018-10-26] MEDS: FUROSEMIDE INJ 10 MG/ML 2 ML VIAL IV SCH ×2 (06:53→18:17)
--- NOTE | 2018-10-26 07:25 | NUR ---
PATIENT ASSISTED TO THE RESTROOM AND BACK TO BED. VOIDED LARGE AMOUNT OF CLEAR YELLOW URINE. BED IN LOWER POSITION, CALL LIGHT AT REACH.
[2018-10-26] MEDS ORDERED: HYDROCORTISONE 100 MG/60 ML ENEMA RC SCH ×2 (09:00→13:00)
[2018-10-26] MEDS: FOLIC ACID 1 MG TAB PO SCH (09:24)
[2018-10-26] MEDS: LACTOBACILLUS ACIDOPHILUS CAPSULE PO SCH ×3 (09:24→21:05)
[2018-10-26] MEDS: IRON SUCROSE 100 MG in SODIUM CHLORIDE 0.9% 100 ML 100 ML IV SCH (09:24)
[2018-10-26] MEDS: HYDROCODONE/APAP 5MG-325MG TAB PO PRN ×2 (09:40→16:55)
--- NOTE | 2018-10-26 11:14 | NUR ---
PATIENT AMBULATED TO THE RESTROOM AND BACK TO BED. CALL LIGHT AT REACH.
[2018-10-26 14:20] LABS: C DIFFICILE TOXIN A&B AMP PROB NEGATIVE (NEGATIVE)
--- NOTE | 2018-10-26 15:36 | NUR ---
Nutrition Follow-up Note RD Recommendation(s) for Physician: The patient meets criteria for unspecified SEVERE protein-calorie malnutrition. - Rec resuming GI soft diet as medically appropriate Plan of Care: Patient has been screened and assessed for nutrition risk. At this time, the patient does not pose any nutrition risk. No further nutrition intervention is warranted at this time. Will re-evaluate if consulted by medical staff. Nutrition reason for involvement: Follow up RD Assessment 10/26 Visited pt in the room. Pt was asleep. Per family on bedside, pt was tolerating diet without any nausea or vomiting. Pt didnt like lunch today. Family has been bringing food from outside. No other concern at this time. 10/20 Visited pt in the room. Pt reported good appetite. Tolerating current diet. Pt still has mild rectal bleeding. No other GI complains reported. Currently on Dilaudid for pain management. Pt is not interested in any oral nutrition supplements. Will continue to monitor and follow. 10/17 38yo F, who was admitted for rectal bleeding. Negative C diff. Visited pt in the room. Pt reported poor appetite and 20lbs weight loss in 3 weeks due to hx of ulcerative colitis. Pt has had rectal bleeding for the last few weeks. Pt denied any nausea or vomiting. Tolerating clear liquid so far. Pt has no issue with chewing or swallowing. Pt has some moderate fat/muscle loss upon observation. Pt was given handouts and diet education on ulcerative colitis in the past. Not interested in any education at this time. RD will return to assess in the next few days as pt appeared to be uncomfortable. Principal Problems/Diagnoses: dehydration, rectal bleeding, colitis PMH: no H&P in chart GI: abdomen flat, soft, non-tender Skin: no pressure wound noted Labs: (10/26) Na 135 L, creatinine 0.49 L (10/19) Na 135 L, Creatinine 0.54 L, Glucose 119 H (10/17) Na 120 L, K 3.4 L, creatinine 0.51 L, Ca 7.9 L, Iron 19 L, TIBC 150L, Transferrin 107 L, Ferritin 483 H, vitamin B12 >2000 H, Folate 2.8 L Meds: abx, cortenema, folic acid, probiotics, lasix, dilaudid, zofran, protonix Ht: 67in Wt: 118lb; 133lb BMI: 18.5kg/m2 IBW: 135lb +/- 10% Malnutrition Evaluation (10/17/2018) The patient meets criteria for unspecified SEVERE protein-calorie malnutrition. Energy intake: <50% of estimated energy requirements for >5 days Weight loss: >2% in 1week (Acute) Fat loss: Moderate hollow look around orbital region Muscle loss: Moderate temporal depression, protrusion of acromion process Supporting Evidence: Fluid accumulation: unable to evaluate Functional Status: no changes Nutrition Prescription (Diet Order): Regular diet Estimated Nutritional Needs: Calories: 1620-1890kcal (30-35kcal/kg/d) Weight used: CBW Protein: 81 - 108g (1.5 2g/kg/d) Weight used: CBW Diet Adequacy: meeting calorie needs, meeting protein needs Diet Education Needs Assessment: Diet education indicated, but patient not appropriate for education at this time. Nutrition Care Level: low Nutrition Diagnosis: Severe malnutrition related inadequate oral intake as evidenced by poor appetite x 3 weeks, weight loss, and muscle/ fat loss. Goal: Patient will meet 75-100% of estimated needs by follow up Progress: Goal met Interventions: Modified diet, Multivitamin/mineral supplement therapy Monitoring/Evaluation: Total energy intake, Total protein intake, Prescription medication, Modified diet, Weight change Signed: Marcela Chen, MS, RD, LD
--- NOTE | 2018-10-26 16:19 | NUR ---
PATIENT IN BED RESTING WITH NO DISTRESS. ALL PERSONAL ITEMS CLOSE TO PATIENT. BED IN LOWER POSITION, CALL LIGHT AT REACH.
[2018-10-26] MEDS: HYDROCORTISONE 100 MG/60 ML ENEMA RC SCH (19:05)
--- NOTE | 2018-10-26 19:05 | NUR ---
PATIENT VOIDED CLEAR YELLOW URINE TO TOILET. POST RESIDUAL CHECKED WITH THE READING OF 108 AND 114. WILL CLOSELY MONITOR.
--- NOTE | 2018-10-26 21:05 | NUR ---
PATIENT AOX3 NO SIGNS OF DISTRESS NOTED. PATIENT VOICED A PAIN LEVEL OF 8 AND WAS MEDICATED ORDERED. FAMILY MEMBER AT BEDSIDE, CALL LIGHT IS WITHIN REACH, WILL CONTINUE TO MONITOR.
[2018-10-27] VITALS (8 sets, daily range): BP systolic 99–112; BP diastolic 51–58
--- NOTE | 2018-10-27 01:15 | NUR ---
DR. WEST HAS COME TO SEE THE PATIENT. EDUCATED AND INFORMED HER ON ANY QUESTIONS THAT SHE HAD ABOUT CONTINUING CARE OUTPATIENT.
[2018-10-27] MEDS ORDERED: METHYLPREDNISOLONE SOD SUCC 40 MG/ML VIAL 1ML IV ONE (01:45)
[2018-10-27] MEDS: PANTOPRAZOLE 40 MG 10ML VIAL IV SCH ×2 (02:10→14:59)
[2018-10-27] MEDS: HYDROMORPHONE 1MG/1ML INJ IV PRN ×5 (03:41→20:30)
[2018-10-27] MEDS: ONDANSETRON HCL INJ 2MG/ML 2ML 2 MG/ML VIAL IV PRN ×5 (03:41→20:30)
[2018-10-27] MEDS: FUROSEMIDE INJ 10 MG/ML 2 ML VIAL IV SCH ×2 (06:09→17:40)
[2018-10-27] MEDS: METHYLPREDNISOLONE SOD SUCC 40 MG/ML VIAL 1ML IV SCH ×3 (06:10→20:30)
[2018-10-27] MEDS: DICYCLOMINE HCL 20 MG TAB PO SCH ×3 (06:10→20:30)
[2018-10-27 06:16] LABS: BASOPHILS % 0.1 % (0.0-1.0); HEMOGLOBIN 9.2 g/dL (12.0-16.0); LYMPHOCYTES # (AUTO) 0.3 (1.0-3.2); LYMPHOCYTES % 3.3 % (18.0-39.1); MEAN CORPUSCULAR HEMOGLOBIN 30.7 pg (28-32); MEAN CORPUSCULAR HGB CONC 32.9 g/dL (31-35); MEAN CORPUSCULAR VOLUME 93.3 fL (81-99); MONOCYTES # (AUTO) 0.1 (0.2-0.8); MONOCYTES % 1.2 % (4.4-11.3); NEUTROPHILS # (AUTO) 9.6 (2.1-6.9); NEUTROPHILS % 94.8 % (38.7-80.0); PLATELET COUNT 301 x10e3/uL (140-360); RETICULOCYTE % 2.9 % (0.8-2.2)
[2018-10-27 06:48] LABS: LYMPHOCYTES % (MANUAL) 4 % (19-48); MONOCYTES % (MANUAL) 2 % (3.4-9.0); NEUTROPHILS % (MANUAL) 94 % (40-74); PLATELET ESTIMATE ADEQUATE
[2018-10-27 06:49] LABS: RBC MORPHOLOGY COMMENT NORMAL
[2018-10-27 06:54] LABS: ALANINE AMINOTRANSFERASE 30 IU/L (0-55); ALBUMIN 2.6 g/dL (3.5-5.0); ALKALINE PHOSPHATASE 84 IU/L (40-150); ANION GAP 8.7 mmol/L (8-16); BLOOD UREA NITROGEN 8 mg/dL (7-26); BUN/CREATININE RATIO 14 (6-25); CALCIUM 8.4 mg/dL (8.4-10.2); CARBON DIOXIDE 33 mmol/L (22-29); CHLORIDE 97 mmol/L (98-107); CREATININE, SERUM 0.57 mg/dL (0.57-1.11); EST GLOMERULAR FILTRATION RATE > 60 ML/MIN (60-); GLUCOSE 118 mg/dL (74-118); POTASSIUM 3.7 mmol/L (3.5-5.1); SODIUM 135 mmol/L (136-145)
[2018-10-27] MEDS: IRON SUCROSE 100 MG in SODIUM CHLORIDE 0.9% 100 ML 100 ML IV SCH (07:47)
[2018-10-27] MEDS: FOLIC ACID 1 MG TAB PO SCH (10:02)
[2018-10-27] MEDS: LACTOBACILLUS ACIDOPHILUS CAPSULE PO SCH ×3 (10:02→20:30)
[2018-10-27] MEDS: HYDROCORTISONE 100 MG/60 ML ENEMA RC SCH ×2 (11:09→16:24)
[2018-10-27] MEDS: CEFEPIME 1GM/NS 0.9% 50 ML 50 ML IV SCH ×2 (12:14→23:38)
--- NOTE | 2018-10-27 19:00 | NUR ---
Received report from day nurse. Patient is resting comfortably in bed. Bed is in lowest position and call millard is within reach. will continue to monitor patient.
[2018-10-27] MEDS: HYDROCODONE/APAP 5MG-325MG TAB PO PRN (23:38)
[2018-10-28] VITALS (8 sets, daily range): BP systolic 90–125; BP diastolic 54–60
[2018-10-28] MEDS: ONDANSETRON HCL INJ 2MG/ML 2ML 2 MG/ML VIAL IV PRN ×4 (00:30→22:10)
[2018-10-28] MEDS: HYDROMORPHONE 1MG/1ML INJ IV PRN ×5 (00:30→22:10)
[2018-10-28] MEDS: PANTOPRAZOLE 40 MG 10ML VIAL IV SCH ×2 (03:22→14:55)
[2018-10-28] MEDS: DICYCLOMINE HCL 20 MG TAB PO SCH ×3 (05:33→20:14)
[2018-10-28] MEDS: FUROSEMIDE INJ 10 MG/ML 2 ML VIAL IV SCH (05:33)
[2018-10-28] MEDS: METHYLPREDNISOLONE SOD SUCC 40 MG/ML VIAL 1ML IV SCH ×3 (05:33→20:14)
--- NOTE | 2018-10-28 07:15 | NUR ---
Bedside rounding anf report received from the off-gp Addendum: 10/28/18 at 0822 by Shante Ambrosio RN going nurse and the pt. is awake and alert. She reports that she has her timer set so that she can call for her next pain med.
[2018-10-28 07:44] LABS: BASOPHILS % 0.1 % (0.0-1.0); HEMOGLOBIN 9.7 g/dL (12.0-16.0); LYMPHOCYTES # (AUTO) 0.6 (1.0-3.2); LYMPHOCYTES % 6.2 % (18.0-39.1); MEAN CORPUSCULAR HEMOGLOBIN 31.1 pg (28-32); MEAN CORPUSCULAR HGB CONC 33.4 g/dL (31-35); MEAN CORPUSCULAR VOLUME 92.9 fL (81-99); MONOCYTES # (AUTO) 0.4 (0.2-0.8); MONOCYTES % 3.8 % (4.4-11.3); NEUTROPHILS # (AUTO) 8.7 (2.1-6.9); NEUTROPHILS % 89.3 % (38.7-80.0); PLATELET COUNT 350 x10e3/uL (140-360); RED BLOOD COUNT 3.12 x10e6/uL (3.6-5.1); RED CELL DISTRIBUTION WIDTH 13.9 % (11.7-14.4)
[2018-10-28 07:49] LABS: ALANINE AMINOTRANSFERASE 26 IU/L (0-55); ALBUMIN 2.8 g/dL (3.5-5.0); ALKALINE PHOSPHATASE 88 IU/L (40-150); ANION GAP 12.6 mmol/L (8-16); BLOOD UREA NITROGEN 9 mg/dL (7-26); BUN/CREATININE RATIO 17 (6-25); CALCIUM 8.9 mg/dL (8.4-10.2); CARBON DIOXIDE 31 mmol/L (22-29); CHLORIDE 98 mmol/L (98-107); CREATININE, SERUM 0.52 mg/dL (0.57-1.11); EST GLOMERULAR FILTRATION RATE > 60 ML/MIN (60-); GLUCOSE 111 mg/dL (74-118); POTASSIUM 3.6 mmol/L (3.5-5.1); SODIUM 138 mmol/L (136-145)
[2018-10-28] MEDS: IRON SUCROSE 100 MG in SODIUM CHLORIDE 0.9% 100 ML 100 ML IV SCH (09:02)
[2018-10-28] MEDS: LACTOBACILLUS ACIDOPHILUS CAPSULE PO SCH ×3 (09:02→20:14)
[2018-10-28] MEDS: HYDROCORTISONE 100 MG/60 ML ENEMA RC SCH ×2 (09:02→17:56)
[2018-10-28] MEDS: FOLIC ACID 1 MG TAB PO SCH (09:02)
[2018-10-28] MEDS: CEFEPIME 1GM/NS 0.9% 50 ML 50 ML IV SCH (12:06)
[2018-10-28] MEDS: HYDROCODONE/APAP 5MG-325MG TAB PO PRN (15:38)
[2018-10-28] MEDS: SIMETHICONE 80 MG CHEW PO SCH (17:56)
--- NOTE | 2018-10-28 19:16 | NUR ---
received report from day nurse. patient is resting comfortably in the bed. bed is in lowest position and call millard is within reach. will continue to monitor patient.
[2018-10-29] VITALS (8 sets, daily range): BP systolic 95–112; BP diastolic 53–65
[2018-10-29] MEDS: SIMETHICONE 80 MG CHEW PO SCH ×4 (00:05→17:15)
[2018-10-29] MEDS: TRAMADOL HCL 50 MG TAB PO PRN ×2 (00:11→10:00)
[2018-10-29] MEDS: CEFEPIME 1GM/NS 0.9% 50 ML 50 ML IV SCH ×2 (00:11→12:11)
[2018-10-29] MEDS: PANTOPRAZOLE 40 MG 10ML VIAL IV SCH ×2 (03:13→13:59)
[2018-10-29] MEDS: HYDROMORPHONE 1MG/1ML INJ IV PRN ×3 (03:44→20:10)
[2018-10-29] MEDS: ONDANSETRON HCL INJ 2MG/ML 2ML 2 MG/ML VIAL IV PRN ×3 (03:44→20:10)
[2018-10-29] MEDS: METHYLPREDNISOLONE SOD SUCC 40 MG/ML VIAL 1ML IV SCH ×3 (05:12→21:35)
[2018-10-29] MEDS: DICYCLOMINE HCL 20 MG TAB PO SCH ×3 (05:12→21:35)
[2018-10-29 06:25] LABS: EOSINOPHILS # (AUTO) 0.2 (0.0-0.4); HEMATOCRIT 27.8 % (34.2-44.1); LYMPHOCYTES # (AUTO) 0.6 (1.0-3.2); LYMPHOCYTES % 9.2 % (18.0-39.1); MEAN CORPUSCULAR HEMOGLOBIN 30.7 pg (28-32); MEAN CORPUSCULAR HGB CONC 32.4 g/dL (31-35); MEAN CORPUSCULAR VOLUME 94.9 fL (81-99); MONOCYTES # (AUTO) 0.5 (0.2-0.8); MONOCYTES % 8.3 % (4.4-11.3); NEUTROPHILS % 78.6 % (38.7-80.0); PLATELET COUNT 294 x10e3/uL (140-360); RED BLOOD COUNT 2.93 x10e6/uL (3.6-5.1); RED CELL DISTRIBUTION WIDTH 14.1 % (11.7-14.4)
--- NOTE | 2018-10-29 06:54 | NUR ---
report given to day nurse. patient is resting comfortably in bed. bed is in lowest position and call millard is within reach.
[2018-10-29 06:57] LABS: ALANINE AMINOTRANSFERASE 40 IU/L (0-55); ALBUMIN 2.7 g/dL (3.5-5.0); ALKALINE PHOSPHATASE 85 IU/L (40-150); ANION GAP 9.4 mmol/L (8-16); BLOOD UREA NITROGEN 13 mg/dL (7-26); BUN/CREATININE RATIO 27 (6-25); CALCIUM 8.6 mg/dL (8.4-10.2); CARBON DIOXIDE 29 mmol/L (22-29); CHLORIDE 100 mmol/L (98-107); CREATININE, SERUM 0.48 mg/dL (0.57-1.11); EST GLOMERULAR FILTRATION RATE > 60 ML/MIN (60-); GLUCOSE 117 mg/dL (74-118); POTASSIUM 3.4 mmol/L (3.5-5.1); SODIUM 135 mmol/L (136-145)
[2018-10-29] MEDS: FOLIC ACID 1 MG TAB PO SCH (09:31)
[2018-10-29] MEDS: LACTOBACILLUS ACIDOPHILUS CAPSULE PO SCH ×3 (09:31→20:10)
[2018-10-29] MEDS: IRON SUCROSE 100 MG in SODIUM CHLORIDE 0.9% 100 ML 100 ML IV SCH (09:31)
[2018-10-29] MEDS: HYDROCORTISONE 100 MG/60 ML ENEMA RC SCH ×2 (10:30→17:53)
[2018-10-29] MEDS ORDERED: POTASSIUM CHLORIDE 10MEQ EA PO ONE (12:00)
[2018-10-30] VITALS (8 sets, daily range): BP systolic 98–129; BP diastolic 57–78
[2018-10-30] MEDS: HYDROMORPHONE 1MG/1ML INJ IV PRN ×4 (00:17→23:37)
[2018-10-30] MEDS: SIMETHICONE 80 MG CHEW PO SCH ×5 (00:17→21:08)
[2018-10-30] MEDS: CEFEPIME 1GM/NS 0.9% 50 ML 50 ML IV SCH (00:17)
[2018-10-30] MEDS: ONDANSETRON HCL INJ 2MG/ML 2ML 2 MG/ML VIAL IV PRN ×4 (00:17→23:37)
[2018-10-30] MEDS: PANTOPRAZOLE 40 MG 10ML VIAL IV SCH ×2 (02:57→14:01)
[2018-10-30] MEDS: DICYCLOMINE HCL 20 MG TAB PO SCH ×3 (05:51→21:35)
[2018-10-30 06:03] LABS: HEMATOCRIT 28.1 % (34.2-44.1); HEMOGLOBIN 9.1 g/dL (12.0-16.0); LYMPHOCYTES # (AUTO) 0.5 (1.0-3.2); LYMPHOCYTES % 8.2 % (18.0-39.1); MEAN CORPUSCULAR HEMOGLOBIN 30.6 pg (28-32); MEAN CORPUSCULAR HGB CONC 32.4 g/dL (31-35); MEAN CORPUSCULAR VOLUME 94.6 fL (81-99); MONOCYTES # (AUTO) 0.7 (0.2-0.8); MONOCYTES % 12.5 % (4.4-11.3); NEUTROPHILS # (AUTO) 4.3 (2.1-6.9); NEUTROPHILS % 78.4 % (38.7-80.0); PLATELET COUNT 291 x10e3/uL (140-360); RED BLOOD COUNT 2.97 x10e6/uL (3.6-5.1)
[2018-10-30 06:32] LABS: ALANINE AMINOTRANSFERASE 109 IU/L (0-55); ALBUMIN 2.7 g/dL (3.5-5.0); ALKALINE PHOSPHATASE 95 IU/L (40-150); BLOOD UREA NITROGEN 12 mg/dL (7-26); BUN/CREATININE RATIO 23 (6-25); CALCIUM 8.5 mg/dL (8.4-10.2); CARBON DIOXIDE 27 mmol/L (22-29); CHLORIDE 100 mmol/L (98-107); CREATININE, SERUM 0.53 mg/dL (0.57-1.11); EST GLOMERULAR FILTRATION RATE > 60 ML/MIN (60-); GLUCOSE 113 mg/dL (74-118); SODIUM 136 mmol/L (136-145)
--- NOTE | 2018-10-30 07:30 | NUR ---
PATIENT IN STABLE CONDITION WITH NO S/S OF RESPIRATORY DISTRESS. PATIENT C/O LOWER ABD PAIN 7/10. CALL LIGHT IS WITHIN REACH, PATIENT INSTRUCTED TO CALL FOR ASSISTANCE NEEDED.
[2018-10-30] MEDS: TRAMADOL HCL 50 MG TAB PO PRN ×2 (07:53→14:00)
[2018-10-30] MEDS: IRON SUCROSE 100 MG in SODIUM CHLORIDE 0.9% 100 ML 100 ML IV SCH (07:56)
[2018-10-30] MEDS: LACTOBACILLUS ACIDOPHILUS CAPSULE PO SCH ×3 (08:09→21:08)
[2018-10-30] MEDS: FOLIC ACID 1 MG TAB PO SCH (08:09)
[2018-10-30] MEDS ORDERED: PREDNISONE 20 MG TAB PO SCH (09:00)
[2018-10-30] MEDS: HYDROCORTISONE 100 MG/60 ML ENEMA RC SCH ×2 (09:50→17:40)
--- NOTE | 2018-10-30 09:51 | NUR ---
PATIENT HAD A BOWEL MOVEMENT AT 0845- TOILET FULL OF BLOOD (SANGUINEOUS), STOOL NOTED FORMED. ENEMA ADMINISTERED TO THE PATIENT AT THIS TIME.
--- NOTE | 2018-10-30 10:29 | NUR ---
CALL PLACED OUT TO DR. WEST REGARDING PATIENT HAVING BLOOD BOWEL MOVEMENTS x3 (TWICE IN THE TOILET; ONE IN BED AFTER SEVERAL MINUTES POST ENEMA ADMINISTRATION)- AWAITING CALLBACK.
--- NOTE | 2018-10-30 10:38 | NUR ---
RECEIVED CALLBACK FROM DR. WEST REGARDING BLOODY STOOLS- ORDER TO OBTAIN CBC AGAIN TODAY. ORDER TO PLACE HOB DOWNWARD WHEN ADMINISTERING ENEMA AND HAVE PATIENT TURN TO HER LEFT AND RIGHT SIDE EACH FOR THIRTY MINUTES. DR. WEST INFORMED THAT STOOL HAS BEEN FIRM AND SOFT ON TWO DIFFERENT BOWEL MOVEMENTS- BLOOD IS AROUND THE STOOL NOT NOTED INSIDE THE STOOL. PHARMACY DOES NOT CARRY REMICADE MEDICATION.
[2018-10-30] MEDS: HYDROCODONE/APAP 5MG-325MG TAB PO PRN (11:11)
--- NOTE | 2018-10-30 11:13 | NUR ---
RECEIVED PHONE CALL FROM DR. BRETT JACOME TO DC CEFEPIME.
--- NOTE | 2018-10-30 11:46 | NUR ---
SPOKE WITH DR. WEST- INFORMED DR. WEST [facility] IS UNABLE TO OBTAIN THE REMICADE MEDICATION. DR. WEST ORDERED RN TO INFORM DR. SUTTON ON PATIENT'S STATUS- CALL PLACED OUT 1465, AWAITING CALLBACK.
--- NOTE | 2018-10-30 11:55 | NUR ---
RECEIVED CALLBACK FROM DR. SUTTON- INFORMED DR. SUTTON THAT DR. WEST WANTED HIM TO BE UPDATED ON THE PATIENT'S STATUS AND INFORMATION REGARDING REMICADE MEDICATION NOT BEING AVAILABLE TO BE MADE AT OUR PHARMACY. DR. SUTTON INFORMED ON PATIENT'S BLOODY STOOLS x4, DIET CHANGE TO CLEAR LIQUIDS AND REPEAT CBC FOR [address] WEST. NO NEW ORDERS GIVEN; DR. SUTTON WILL PLACE LAB ORDERS FOR TOMORROW, 10/31/18.
--- NOTE | 2018-10-30 13:23 | NUR ---
CALL PLACED OUT TO DR. WEST REGARDING MEDICATION FOR GAS UPON PATIENT'S REQUEST- AWAITING CALLBACK.
[2018-10-30 14:15] LABS: HEMOGLOBIN 8.7 g/dL (12.0-16.0); MEAN CORPUSCULAR HGB CONC 32.2 g/dL (31-35); MEAN CORPUSCULAR VOLUME 96.1 fL (81-99); PLATELET COUNT 309 x10e3/uL (140-360); RED BLOOD COUNT 2.81 x10e6/uL (3.6-5.1); RED CELL DISTRIBUTION WIDTH 14.1 % (11.7-14.4)
[2018-10-30 15:55] LABS: HYPOCHROMASIA SLIGHT; LYMPHOCYTES % (MANUAL) 5 % (19-48); MONOCYTES % (MANUAL) 5 % (3.4-9.0); NEUTROPHILS % (MANUAL) 90 % (40-74); PLATELET ESTIMATE ADEQUATE; PLATELET MORPHOLOGY COMMENT NORMAL; RBC MORPHOLOGY COMMENT NORMAL
--- NOTE | 2018-10-30 17:16 | NUR ---
RECEIVED CALL FROM DR. WEST- DR. WEST INFORMED PATIENT HAS HAD 8 BLOODY BOWEL MOVEMENTS. ORDER TO COLLECT STOOL SAMPLE FOR C.DIFF. DR. WEST ALSO INFORMED ON PATIENT'S HGB LEVEL OF 8.7- NO NEW ORDERS GIVEN.
--- NOTE | 2018-10-30 18:52 | NUR ---
CALL PLACED OUT TO DR. Glenis WEST TO INFORM HIM OF PATIENT'S LAST BOWEL MOVEMENT- PATIENT LOST BLOOD FROM THE BED ALL THE WAY TO THE TOILET. NO STOOL NOTED ON THE FLOOR. PATIENT WAS TRYING TO GIVE A BM SAMPLE BUT WAS STILL ON TOILET AND WILL SHOWER. AWAITING CALLBACK.
--- NOTE | 2018-10-30 19:26 | NUR ---
PATIENT RESTING IN BED-IN STABLE CONDITION WITH NO S/S OF RESPIRATORY DISTRESS. PATIENT REQUESTED IV DILAUDID. CALL LIGHT IS WITHIN REACH, PATIENT INSTRUCTED TO CALL FOR ASSISTANCE NEEDED. BEDSIDE REPORT GIVEN TO ONCOMING NURSE.
--- NOTE | 2018-10-30 19:47 | NUR ---
PT IS RESTING IN BED WITH HER AT BEDSIDE. RESPIRATION IS EVEN AND UNLABORED, NO DISTRESS NOTED. BED IN THE LOWEST POSITION, LOCKED, AND CALL LIGHT WITHIN REACH. WILL CONTINUE TO MONITOR.
[2018-10-31] VITALS (8 sets, daily range): BP systolic 88–101; BP diastolic 44–58
[2018-10-31] MEDS ORDERED: METHYLPREDNISOLONE SOD SUCC 40 MG/ML VIAL 1ML IV ONE
[2018-10-31] MEDS: SIMETHICONE 80 MG CHEW PO SCH ×9 (00:02→23:52)
[2018-10-31] MEDS: ONDANSETRON HCL INJ 2MG/ML 2ML 2 MG/ML VIAL IV PRN ×5 (03:30→22:14)
[2018-10-31] MEDS: HYDROMORPHONE 1MG/1ML INJ IV PRN ×5 (03:30→22:14)
[2018-10-31] MEDS: PANTOPRAZOLE 40 MG 10ML VIAL IV SCH ×2 (03:30→14:27)
[2018-10-31] MEDS: DICYCLOMINE HCL 20 MG TAB PO SCH ×3 (05:55→21:16)
[2018-10-31] MEDS: METHYLPREDNISOLONE SOD SUCC 40 MG/ML VIAL 1ML IV SCH ×3 (05:55→21:16)
[2018-10-31 06:10] LABS: BASOPHILS % 0.1 % (0.0-1.0); LYMPHOCYTES # (AUTO) 0.6 (1.0-3.2); LYMPHOCYTES % 8.5 % (18.0-39.1); MEAN CORPUSCULAR HEMOGLOBIN 30.9 pg (28-32); MEAN CORPUSCULAR HGB CONC 32.2 g/dL (31-35); MONOCYTES # (AUTO) 0.5 (0.2-0.8); MONOCYTES % 6.6 % (4.4-11.3); NEUTROPHILS # (AUTO) 5.8 (2.1-6.9); NEUTROPHILS % 83.9 % (38.7-80.0); PLATELET COUNT 283 x10e3/uL (140-360); RED BLOOD COUNT 2.23 x10e6/uL (3.6-5.1); RED CELL DISTRIBUTION WIDTH 14.3 % (11.7-14.4)
[2018-10-31 06:24] LABS: HEMATOCRIT 21.4 % (34.2-44.1); HEMOGLOBIN 6.9 g/dL (12.0-16.0)
--- NOTE | 2018-10-31 06:37 | NUR ---
SPOKE TO DR WEST IN REGARD TO PT HGB 6.9 AND HCT [address]4. PER DR WEST 2 UNITS OF BLOOD AND TYPE AND SCREEN. WILL CONTINUE TO MONITOR.
[2018-10-31 06:43] LABS: ALANINE AMINOTRANSFERASE 89 IU/L (0-55); ALBUMIN 2.4 g/dL (3.5-5.0); ALBUMIN/GLOBULIN RATIO 1.1 (0.8-2.0); ALKALINE PHOSPHATASE 73 IU/L (40-150); ANION GAP 12.3 mmol/L (8-16); BLOOD UREA NITROGEN 11 mg/dL (7-26); BUN/CREATININE RATIO 22 (6-25); CALCIUM 8.4 mg/dL (8.4-10.2); CARBON DIOXIDE 28 mmol/L (22-29); CHLORIDE 100 mmol/L (98-107); EST GLOMERULAR FILTRATION RATE > 60 ML/MIN (60-); GLUCOSE 96 mg/dL (74-118); POTASSIUM 4.3 mmol/L (3.5-5.1); SODIUM 136 mmol/L (136-145)
[2018-10-31] MEDS ORDERED: SODIUM CHLORIDE 0.9% 250ML 250 ML IV ONE (06:45)
--- NOTE | 2018-10-31 07:40 | NUR ---
PATIENT IS AWAKE AND IN STABLE CONDITION WITH NO S/S OF RESPIRATORY DISTRESS. PATIENT C/O ABD PAIN 09/06. PATIENT INFORMED TO CALL FOR ASSISTANCE PRIOR TO GETTING OUT OF BED IF SHE FEELS DIZZY. CALL LIGHT IS WITHIN REACH OF PATIENT.
[2018-10-31] MEDS: FOLIC ACID 1 MG TAB PO SCH (08:16)
[2018-10-31] MEDS: IRON SUCROSE 100 MG in SODIUM CHLORIDE 0.9% 100 ML 100 ML IV SCH (08:16)
[2018-10-31] MEDS: LACTOBACILLUS ACIDOPHILUS CAPSULE PO SCH ×3 (08:16→21:16)
[2018-10-31] MEDS ORDERED: SODIUM CHLORIDE 0.9% 250ML 250 ML ONE ×2 (11:09→15:01)
--- NOTE | 2018-10-31 11:46 | NUR ---
BLOOD TRANSFUSION STOPPED AT 1133 DUE TO IV SITE ON LEFT HAND BURNING THE PATIENT. NEW IV PLACED ON LEFT AC 20G. BLOOD TRANSFUSION STARTED AGAIN AT 1144.
--- NOTE | 2018-10-31 12:12 | NUR ---
ORDER RECEIVED FOR TRANSFER TO [facility] FOR SEVERE ULCERATIVE COLITIS AND ACTIVE BLEEDING. MET W THE PT AND FAMILY AT THE BEDSIDE. DISCUSSED CHOICE. PT AGREED TO GO TO [facility]. CHOICE LETTER WAS SIGNED. COPY TO PT AND COPY TO THE CHART. CALL MADE TO [facility] @ [phone]. SPOKE W LOTTIE. TRANSFER WAS INITIATED. @ 1125AM. MOT WAS INITIATED.
--- NOTE | 2018-10-31 13:21 | NUR ---
BLOOD TRANSFUSION STOPPED AT 1315 DUE TO IV ON LEFT AC INFILTRATING. BLOOD TRANSFUSION RESTARTED AT 1329.
--- NOTE | 2018-10-31 14:41 | NUR ---
CALL RECEIVED FROM Glenis WEST REGARDING ETA FOR [facility]. INFORMED CM HAD NOT HEARD BACK YET FROM [facility]. STATES THE PT HAS TO TRANSFER AND GAVE REASONS WHY: STATES THE PT HAS NOT RESPONDED TO STEROID THERAPY. ALSO THE HOSPITAL IS NOT ABLE TO PROVIDE BIOLOGICS. STATES THE PT MAY ALSO NEED SURGERY FOR IBD/IBS. CM CALLED TO [facility] TO CHECK STATUS OF TXF. UPDATED INFO PER DR. Glenis WEST GIVEN. STATES THEY WERE STILL AWAITING INSURANCE CLEARANCE, NEEDED AN ACCEPTING DOC, AND THEY HAD NO BEDS AVAILABLE AT THIS TIME. STATES SHE WILL CALL BACK WHEN A BED IS AVAILABLE. SPOKE Victor Manuel MESA; HOUSE SUPER. SHE WAS GIVEN AN UPDATE
[2018-10-31] MEDS: TRAMADOL HCL 50 MG TAB PO PRN (16:52)
--- NOTE | 2018-10-31 19:17 | NUR ---
PATIENT SITTING UP IN BED- IN STABLE CONDITION WITH NO S/S OF RESPIRATORY DISTRESS. PATIENT RECENTLY RECEIVED PAIN MEDICATION FOR ABD PAIN 09/06. 2 UNITS OF PRBC WERE ADMINISTERED TO PATIENT. CALL LIGHT IS WITHIN REACH, PATIENT INSTRUCTED TO CALL FOR ASSISTANCE NEEDED. REPORT GIVEN TO ONCOMING NURSE.
[2018-10-31] MEDS ORDERED: ALBUMIN 25% 12.5GM 0.25 GM/ML BTL IV STA (22:48)
[2018-11-01] VITALS: BP 96/55
--- NOTE | 2018-11-01 01:11 | NUR ---
PER DR Glenis WEST IT IS OKAY TO RENEW DILAUDID 1MG IV Q4H PRN. WILL CONTINUE TO MONITOR.
[2018-11-01] MEDS: HYDROMORPHONE 1MG/1ML INJ IV PRN ×6 (02:16→23:00)
[2018-11-01] MEDS: ONDANSETRON HCL INJ 2MG/ML 2ML 2 MG/ML VIAL IV PRN ×6 (02:16→23:01)
[2018-11-01] MEDS: PANTOPRAZOLE 40 MG 10ML VIAL IV SCH ×2 (03:02→15:22)
[2018-11-01] MEDS: SIMETHICONE 80 MG CHEW PO SCH ×8 (03:02→22:58)
[2018-11-01 04:00] VITALS: BP 93/55
[2018-11-01 05:51] LABS: BASOPHILS % 0.3 % (0.0-1.0); HEMATOCRIT 23.5 % (34.2-44.1); HEMOGLOBIN 7.7 g/dL (12.0-16.0); LYMPHOCYTES # (AUTO) 0.4 (1.0-3.2); MEAN CORPUSCULAR HEMOGLOBIN 30.3 pg (28-32); MEAN CORPUSCULAR HGB CONC 32.8 g/dL (31-35); MEAN CORPUSCULAR VOLUME 92.5 fL (81-99); MONOCYTES # (AUTO) 0.4 (0.2-0.8); MONOCYTES % 10.8 % (4.4-11.3); NEUTROPHILS # (AUTO) 3.1 (2.1-6.9); NEUTROPHILS % 78.4 % (38.7-80.0); PLATELET COUNT 202 x10e3/uL (140-360); RED BLOOD COUNT 2.54 x10e6/uL (3.6-5.1); RED CELL DISTRIBUTION WIDTH 15.1 % (11.7-14.4)
[2018-11-01] MEDS: METHYLPREDNISOLONE SOD SUCC 40 MG/ML VIAL 1ML IV SCH ×4 (06:20→22:58)
[2018-11-01] MEDS: DICYCLOMINE HCL 20 MG TAB PO SCH ×3 (06:20→22:00)
[2018-11-01 06:23] LABS: ALANINE AMINOTRANSFERASE 61 IU/L (0-55); ALBUMIN 3.1 g/dL (3.5-5.0); ALBUMIN/GLOBULIN RATIO 1.8 (0.8-2.0); ALKALINE PHOSPHATASE 74 IU/L (40-150); ANION GAP 13.1 mmol/L (8-16); BLOOD UREA NITROGEN 9 mg/dL (7-26); BUN/CREATININE RATIO 16 (6-25); CALCIUM 8.9 mg/dL (8.4-10.2); CARBON DIOXIDE 29 mmol/L (22-29); CHLORIDE 97 mmol/L (98-107); CREATININE, SERUM 0.58 mg/dL (0.57-1.11); EST GLOMERULAR FILTRATION RATE > 60 ML/MIN (60-); GLUCOSE 111 mg/dL (74-118); POTASSIUM 4.1 mmol/L (3.5-5.1); SODIUM 135 mmol/L (136-145)
--- NOTE | 2018-11-01 07:45 | NUR ---
Received patient this morning, a/ox3, pleasant, in bed, call light within reach, no resp distress, will monitor.
[2018-11-01] MEDS: IRON SUCROSE 100 MG in SODIUM CHLORIDE 0.9% 100 ML 100 ML IV SCH (08:00)
[2018-11-01 08:29] VITALS: BP 91/53
--- NOTE | 2018-11-01 08:53 | NUR ---
CALL TO [facility] @ [phone]. STATES THEY ARE STILL AWAITING FINANCIAL CLEARANCE, BED AVAILABILITY AND ACCEPTING MD. FAVIO IBRAHIM NOTIFIED.
[2018-11-01] MEDS ORDERED: ALBUMIN 25% 12.5GM 0.25 GM/ML BTL IV ONE (09:00)
--- NOTE | 2018-11-01 09:42 | NUR ---
Rounds by Dr. Townsend and orders to advance diet as tolerated, placed now on full liquid diet.
[2018-11-01] MEDS: LACTOBACILLUS ACIDOPHILUS CAPSULE PO SCH ×3 (09:44→20:12)
[2018-11-01] MEDS: FOLIC ACID 1 MG TAB PO SCH (09:44)
[2018-11-01] MEDS ORDERED: ALBUMIN 25% 12.5GM 50ML 200 ML IV ONE (10:50)
[2018-11-01 11:41] VITALS: BP 95/50
[2018-11-01 16:11] VITALS: BP 103/51
[2018-11-01] MEDS: TRAMADOL HCL 50 MG TAB PO PRN (17:07)
--- NOTE | 2018-11-01 17:40 | NUR ---
Patient starting to c/o more abdominal pain after lunch, medicated for pain and will monitor. Had 4 BM soft this morning but no rectal bleeding, will monitor.
--- NOTE | 2018-11-01 19:37 | NUR ---
Received change of shift report from AM nurse. Walking rounds completed.
[2018-11-01 20:00] VITALS: BP 100/50
--- NOTE | 2018-11-01 22:29 | NUR ---
Patient in bed. Received pain meds from AM nurse. States she has pain and would like other pain meds. Informed patient meds not due but will give when due. Patient verbalized understanding.
[2018-11-01] MEDS ORDERED: HYDROMORPHONE 1MG/1ML INJ IV STA (23:57)
[2018-11-01] MEDS ORDERED: ONDANSETRON HCL INJ 2MG/ML 2ML 2 MG/ML VIAL IV STA (23:57)
[2018-11-02] VITALS (8 sets, daily range): BP systolic 98–111; BP diastolic 53–63
--- NOTE | 2018-11-02 00:23 | NUR ---
Dr Reyna on the floor to see patient. Orders received and completed.
[2018-11-02] MEDS: HYDROMORPHONE 1MG/1ML INJ IV PRN ×5 (02:59→19:32)
[2018-11-02] MEDS: ONDANSETRON HCL INJ 2MG/ML 2ML 2 MG/ML VIAL IV PRN ×5 (02:59→19:32)
[2018-11-02] MEDS: SIMETHICONE 80 MG CHEW PO SCH ×7 (03:00→21:00)
[2018-11-02] MEDS: PANTOPRAZOLE 40 MG 10ML VIAL IV SCH ×2 (03:00→15:39)
--- NOTE | 2018-11-02 04:19 | NUR ---
SPOKE TO SHERI WITH THE [facility]. TRANSFER IS PENDING BED AVAILABILITY. AND TRANSFER IS ALSO PENDING AN ACCEPTING PHYSICIAN. PM NURSE MADE AWARE OF ALL OF THE ABOVE.
[2018-11-02] MEDS: METHYLPREDNISOLONE SOD SUCC 40 MG/ML VIAL 1ML IV SCH ×3 (05:51→21:31)
[2018-11-02] MEDS: DICYCLOMINE HCL 20 MG TAB PO SCH ×3 (05:51→21:31)
[2018-11-02 06:00] LABS: BASOPHILS % 0.2 % (0.0-1.0); HEMATOCRIT 23.9 % (34.2-44.1); HEMOGLOBIN 7.8 g/dL (12.0-16.0); LYMPHOCYTES # (AUTO) 0.4 (1.0-3.2); LYMPHOCYTES % 7.8 % (18.0-39.1); MEAN CORPUSCULAR HGB CONC 32.6 g/dL (31-35); MEAN CORPUSCULAR VOLUME 94.8 fL (81-99); MONOCYTES # (AUTO) 0.4 (0.2-0.8); MONOCYTES % 8.1 % (4.4-11.3); NEUTROPHILS # (AUTO) 3.9 (2.1-6.9); NEUTROPHILS % 83.3 % (38.7-80.0); PLATELET COUNT 203 x10e3/uL (140-360); RED BLOOD COUNT 2.52 x10e6/uL (3.6-5.1); RED CELL DISTRIBUTION WIDTH 15.1 % (11.7-14.4)
[2018-11-02 06:24] LABS: ANION GAP 9.7 mmol/L (8-16); BLOOD UREA NITROGEN 10 mg/dL (7-26); BUN/CREATININE RATIO 18 (6-25); CALCIUM 8.9 mg/dL (8.4-10.2); CARBON DIOXIDE 32 mmol/L (22-29); CHLORIDE 98 mmol/L (98-107); CREATININE, SERUM 0.56 mg/dL (0.57-1.11); EST GLOMERULAR FILTRATION RATE > 60 ML/MIN (60-); GLUCOSE 112 mg/dL (74-118); POTASSIUM 3.7 mmol/L (3.5-5.1); SODIUM 136 mmol/L (136-145)
--- NOTE | 2018-11-02 07:35 | NUR ---
PATIENT SITTING IN BED PLAYING ON HER COMPUTER, NO DISTRESS NOTED. BED IN LOWER POSITION, CALL LIGHT AT REACH.
[2018-11-02 08:10] LABS: BAND NEUTROPHILS % (MANUAL) 9 %; LYMPHOCYTES % (MANUAL) 7 % (19-48); MONOCYTES % (MANUAL) 3 % (3.4-9.0); NEUTROPHILS % (MANUAL) 81 % (40-74)
[2018-11-02 08:11] LABS: PLATELET ESTIMATE ADEQUATE; PLATELET MORPHOLOGY COMMENT NORMAL; RBC MORPHOLOGY COMMENT NORMAL
--- NOTE | 2018-11-02 08:58 | NUR ---
Spoke with Thalia at [facility] [phone]. States pt has been financially approved, still pending bed availability and accepting physician.
[2018-11-02] MEDS: IRON SUCROSE 100 MG in SODIUM CHLORIDE 0.9% 100 ML 100 ML IV SCH (09:01)
[2018-11-02] MEDS: FOLIC ACID 1 MG TAB PO SCH (09:01)
[2018-11-02] MEDS: LACTOBACILLUS ACIDOPHILUS CAPSULE PO SCH ×3 (09:01→21:00)
[2018-11-02] MEDS: LEVOFLOXACIN 500MG/D5W 100ML 100 ML IV SCH (11:10)
[2018-11-02] MEDS: TOFACITINIB 10 MG PO SCH ×2 (13:33→17:24)
--- NOTE | 2018-11-02 14:46 | NUR ---
Spoke with Mustapha at [facility], states still pending bed availability. Physician will be assigned once bed available. Dr. Townsend was updated on status.
[2018-11-02] MEDS: METRONIDAZOLE 500MG/NS 100ML 100 ML IV SCH ×2 (14:55→21:31)
--- NOTE | 2018-11-02 16:07 | NUR ---
PATIENT NEW MEDICATION RECEIVED FROM DR WEST. ADMINISTERED ORDERED. IN BED WITH CALL LIGHT AT REACH.
--- NOTE | 2018-11-02 19:30 | NUR ---
Received change of shift report from AM nurse. Walking rounds completed. Patient up in bed asking for pain meds. Will medicate according to order. Continue monitor.
--- NOTE | 2018-11-02 22:09 | NUR ---
Patient requesting pain meds. Meds given as ordered by . IV intact and patent.
[2018-11-03] MEDS: ONDANSETRON HCL INJ 2MG/ML 2ML 2 MG/ML VIAL IV PRN ×6 (00:40→21:39)
[2018-11-03] MEDS: HYDROMORPHONE 1MG/1ML INJ IV PRN ×6 (00:40→21:39)
--- NOTE | 2018-11-03 00:45 | NUR ---
Dr Reyna on the floor to see patient. Will f/u on any new orders.
[2018-11-03] MEDS: SIMETHICONE 80 MG CHEW PO SCH ×8 (03:00→21:39)
[2018-11-03] MEDS: PANTOPRAZOLE 40 MG 10ML VIAL IV SCH ×2 (03:00→14:34)
--- NOTE | 2018-11-03 04:05 | NUR ---
No changes noted in patient condition. Resting quitly at this time. Continue monitor.
[2018-11-03 04:08] VITALS: BP 114/61
[2018-11-03] MEDS: METHYLPREDNISOLONE SOD SUCC 40 MG/ML VIAL 1ML IV SCH ×3 (05:28→21:40)
[2018-11-03] MEDS: METRONIDAZOLE 500MG/NS 100ML 100 ML IV SCH ×3 (05:28→21:39)
[2018-11-03] MEDS: DICYCLOMINE HCL 20 MG TAB PO SCH ×3 (05:28→21:40)
[2018-11-03 06:29] LABS: HEMOGLOBIN 7.4 g/dL (12.0-16.0); LYMPHOCYTES # (AUTO) 0.5 (1.0-3.2); LYMPHOCYTES % 10.8 % (18.0-39.1); MEAN CORPUSCULAR HEMOGLOBIN 30.7 pg (28-32); MEAN CORPUSCULAR HGB CONC 32.2 g/dL (31-35); MEAN CORPUSCULAR VOLUME 95.4 fL (81-99); MONOCYTES # (AUTO) 0.5 (0.2-0.8); MONOCYTES % 10.2 % (4.4-11.3); NEUTROPHILS # (AUTO) 3.7 (2.1-6.9); NEUTROPHILS % 78.2 % (38.7-80.0); PLATELET COUNT 224 x10e3/uL (140-360); RED BLOOD COUNT 2.41 x10e6/uL (3.6-5.1); RED CELL DISTRIBUTION WIDTH 15.1 % (11.7-14.4)
[2018-11-03 06:49] LABS: ALANINE AMINOTRANSFERASE 47 IU/L (0-55); ALBUMIN/GLOBULIN RATIO 1.9 (0.8-2.0); ALKALINE PHOSPHATASE 60 IU/L (40-150); ANION GAP 10.7 mmol/L (8-16); BLOOD UREA NITROGEN 12 mg/dL (7-26); BUN/CREATININE RATIO 24 (6-25); CALCIUM 8.5 mg/dL (8.4-10.2); CARBON DIOXIDE 28 mmol/L (22-29); CHLORIDE 101 mmol/L (98-107); EST GLOMERULAR FILTRATION RATE > 60 ML/MIN (60-); GLUCOSE 92 mg/dL (74-118); POTASSIUM 3.7 mmol/L (3.5-5.1); SODIUM 136 mmol/L (136-145)
--- NOTE | 2018-11-03 07:00 | NUR ---
RECEIVED BEDSIDE SHIFT REPORT FROM NIGHT RN BHASKAR. PT DENIES NEEDS AT THIS TIME.
[2018-11-03 07:50] VITALS: BP 101/55
[2018-11-03] MEDS: IRON SUCROSE 100 MG in SODIUM CHLORIDE 0.9% 100 ML 100 ML IV SCH (08:34)
[2018-11-03] MEDS: TOFACITINIB 10 MG PO SCH ×2 (08:34→17:37)
[2018-11-03] MEDS: FOLIC ACID 1 MG TAB PO SCH (08:34)
[2018-11-03] MEDS: LACTOBACILLUS ACIDOPHILUS CAPSULE PO SCH ×3 (08:35→21:39)
[2018-11-03] MEDS: LEVOFLOXACIN 500MG/D5W 100ML 100 ML IV SCH (10:08)
[2018-11-03 11:26] VITALS: BP 96/52
--- NOTE | 2018-11-03 13:59 | NUR ---
DIR OF EPI, EPI JULIAN AND DR. Dima WEST SPOKE OVER THE PHONE REGARDING A DC PLAN. IESHA INFORMED DR. BRETT SUTTON REVIEWED THE CASE AND HAD SPOKEN W A PHYSICIAN FROM [facility] REGARDING TXF TO [facility]. DOC TO DOC REVIEWED CASE. BOTH FACILITIES HAD NO BEDS AVAILABLE. Glenis WEST STATES PT IS GETTING BETTER SINCE STARTING XELJANZ. BRETT STATES HE WILL HAVE TO WEAN THE STEROIDS FOR THE PT AND OBSERVE HER FOR 2 MORE DAYS AND THEN POSSIBLY HOME. DR. SUTTON MADE AWARE OF UPDATE BY DIRECTOR; IESHA OCAMPO.
[2018-11-03 15:33] VITALS: BP 97/54
[2018-11-03] MEDS: TRAMADOL HCL 50 MG TAB PO PRN (16:03)
[2018-11-03 19:30] VITALS: BP 93/52
--- NOTE | 2018-11-03 19:30 | NUR ---
PT IS RESTING IN BED WITH FAMILY AT BEDSIDE. RESPIRATION IS EVEN AND UNLABORED, NO DISTRESS NOTED. BED IN THE LOWEST POSITION, LOCKED, AND CALL LIGHT WITHIN REACH. WILL CONTINUE TO MONITOR.
[2018-11-03 19:52] VITALS: BP 93/52
[2018-11-04] VITALS (8 sets, daily range): BP systolic 97–112; BP diastolic 50–67
[2018-11-04] MEDS: SIMETHICONE 80 MG CHEW PO SCH ×9 (00:39→23:04)
[2018-11-04] MEDS: HYDROMORPHONE 1MG/1ML INJ IV PRN ×6 (01:47→22:08)
[2018-11-04] MEDS: ONDANSETRON HCL INJ 2MG/ML 2ML 2 MG/ML VIAL IV PRN ×6 (01:49→22:08)
[2018-11-04] MEDS: PROMETHAZINE 12.5MG/ NACL 0.9% 12.5 MG/50 ML BAG IV PRN ×3 (03:00→19:06)
[2018-11-04] MEDS: PANTOPRAZOLE 40 MG 10ML VIAL IV SCH ×2 (03:19→16:30)
[2018-11-04] MEDS: DICYCLOMINE HCL 20 MG TAB PO SCH ×3 (05:48→22:00)
[2018-11-04] MEDS: METHYLPREDNISOLONE SOD SUCC 40 MG/ML VIAL 1ML IV SCH ×3 (05:48→22:00)
[2018-11-04] MEDS: METRONIDAZOLE 500MG/NS 100ML 100 ML IV SCH ×3 (05:48→22:00)
[2018-11-04 06:53] LABS: BASOPHILS % 0.3 % (0.0-1.0); LYMPHOCYTES # (AUTO) 0.3 (1.0-3.2); MEAN CORPUSCULAR HEMOGLOBIN 31.3 pg (28-32); MEAN CORPUSCULAR HGB CONC 32.6 g/dL (31-35); MEAN CORPUSCULAR VOLUME 96.1 fL (81-99); MONOCYTES # (AUTO) 0.4 (0.2-0.8); MONOCYTES % 10.2 % (4.4-11.3); NEUTROPHILS % 81.7 % (38.7-80.0); PLATELET COUNT 236 x10e3/uL (140-360); RED CELL DISTRIBUTION WIDTH 15.5 % (11.7-14.4)
--- NOTE | 2018-11-04 07:00 | NUR ---
Received bedside report from night nurse. Patient resting in bed, no c/o of pain or signs of distress at this time. All safety measures in place. Will continue to monitor.
[2018-11-04 07:14] LABS: ALANINE AMINOTRANSFERASE 40 IU/L (0-55); ALBUMIN 2.8 g/dL (3.5-5.0); ALBUMIN/GLOBULIN RATIO 1.6 (0.8-2.0); ALKALINE PHOSPHATASE 68 IU/L (40-150); ANION GAP 11.5 mmol/L (8-16); BLOOD UREA NITROGEN 11 mg/dL (7-26); BUN/CREATININE RATIO 22 (6-25); CALCIUM 8.1 mg/dL (8.4-10.2); CARBON DIOXIDE 28 mmol/L (22-29); CHLORIDE 104 mmol/L (98-107); CREATININE, SERUM 0.51 mg/dL (0.57-1.11); EST GLOMERULAR FILTRATION RATE > 60 ML/MIN (60-); GLUCOSE 115 mg/dL (74-118); HEMATOCRIT 22.1 % (34.2-44.1); POTASSIUM 3.5 mmol/L (3.5-5.1); SODIUM 140 mmol/L (136-145)
[2018-11-04 07:15] LABS: HEMOGLOBIN 7.2 g/dL (12.0-16.0)
[2018-11-04] MEDS: TOFACITINIB 10 MG PO SCH ×2 (08:24→16:30)
[2018-11-04] MEDS: SUCRALFATE 1 GM/10 ML SUSP NG SCH ×4 (08:24→20:37)
[2018-11-04] MEDS: LACTOBACILLUS ACIDOPHILUS CAPSULE PO SCH ×3 (08:24→20:37)
[2018-11-04] MEDS: FOLIC ACID 1 MG TAB PO SCH (08:24)
[2018-11-04] MEDS: IRON SUCROSE 100 MG in SODIUM CHLORIDE 0.9% 100 ML 100 ML IV SCH (08:32)
[2018-11-04 09:13] LABS: LYMPHOCYTES % (MANUAL) 8 % (19-48); MONOCYTES % (MANUAL) 9 % (3.4-9.0); NEUTROPHILS % (MANUAL) 83 % (40-74); PLATELET ESTIMATE ADEQUATE; RBC MORPHOLOGY COMMENT NORMAL
[2018-11-04] MEDS: LEVOFLOXACIN 500MG/D5W 100ML 100 ML IV SCH (11:19)
--- NOTE | 2018-11-04 17:07 | Progress Note ---
DATE: 11/04/2018 Internal Medicine Progress Note SUBJECTIVE: The patient is still complaining of abdominal pain. The rectal bleeding resolved. She is eager to go home. OBJECTIVE: VITAL SIGNS: Blood pressure 99/50, temperature 98.8, heart rate 180 per minute, respiratory rate 16 per minute, and O2 saturation 98%. HEART: Showed regular rhythm. Normal S1, S2 sound. LUNGS: Clear bilaterally. ABDOMEN: Soft with mild tenderness of the left lower quadrant. LABORATORY DATA: On the CBC; white count 3.72, hemoglobin 7.2, hematocrit 22.1, platelet count 236,000. On the BMP; sodium 140, potassium 3.5, chloride 104, CO2 28, BUN 11, creatinine 0.51, glucose 115, AST 11, ALT 40, total bilirubin 0.3, alkaline phosphatase is 68. IMPRESSION: 1. Ulcerative colitis exacerbation. 2. Rectal bleeding. 3. Acute anemia secondary to rectal bleeding. 4. Hypokalemia. 5. Leukopenia. PLAN OF TREATMENT: We are going to repeat a CBC, transfuse if the hemoglobin less than 7.0. Continue IV iron infusion, Levaquin, and metronidazole. Metronidazole 500 g IV q.8 hours, Levaquin 500 mg IV once a day, Tylenol 650 mg p.o. q.4 hours as needed for pain or fever. Folic acid 1 mg daily. Replace the potassium. Continue Protonix 40 mg twice a day, simethicone 80 mg q.3 hours as needed, Zofran 8 mg q.4 hours as needed for nausea, Bentyl 20 mg q.8 hours, Dilaudid 1 mg IV q.4 hours as needed for severe pain, promethazine 12.5 mg IV q.6 hours as needed for nausea and vomiting, lactobacillus acidophilus one tablet three times a day, Solu-Medrol 40 mg IV q.8 hours, Carafate 1 g before meals and at bedtime. Going to repeat a CBC, transfuse if needed. MD YANNICK Roberts/JOSE /[id number]
--- NOTE | 2018-11-04 18:58 | NUR ---
Report given to night nurse. Patient resting in bed, no signs of distress at this time. All safety measures in place.
--- NOTE | 2018-11-04 19:00 | NUR ---
patient received awake, alert, lying quietly in bed. no c/o pain noted. pm assessment complete. patient instructed to call for assistance when needed.
--- NOTE | 2018-11-04 19:06 | NUR ---
patient medicated with phenergan 12.5mg iv for c/o nausea at this time.
--- NOTE | 2018-11-04 20:00 | NUR ---
patient noted eating steak dinner brought in by .
--- NOTE | 2018-11-04 22:08 | NUR ---
Patient medicated with dilaudid 1mg and zofran 8mg ivp for c/o pain/nausea at this time.
[2018-11-05] VITALS (7 sets, daily range): BP systolic 103–120; BP diastolic 56–66
[2018-11-05] MEDS: PROMETHAZINE 12.5MG/ NACL 0.9% 12.5 MG/50 ML BAG IV PRN ×3 (01:08→20:07)
--- NOTE | 2018-11-05 01:08 | NUR ---
patient medicated with phenergan 12.5mg iv for c/o nausea at this time per patients request.
--- NOTE | 2018-11-05 02:00 | NUR ---
here to see patient. patient for possible discharge tuesday per his standpoint if patient continues to improve. patient instructed/encouraged to cut down on iv dilaudid if possible because she will not discharge with iv dilaudid. patient verbalizes understanding of this.
[2018-11-05] MEDS: ONDANSETRON HCL INJ 2MG/ML 2ML 2 MG/ML VIAL IV PRN ×4 (02:17→17:53)
[2018-11-05] MEDS: PANTOPRAZOLE 40 MG 10ML VIAL IV SCH ×2 (02:17→17:20)
[2018-11-05] MEDS: SIMETHICONE 80 MG CHEW PO SCH ×7 (02:17→21:00)
[2018-11-05] MEDS: HYDROMORPHONE 1MG/1ML INJ IV PRN ×4 (02:17→17:53)
--- NOTE | 2018-11-05 02:17 | NUR ---
patient medicated with dilaudid 1mg iv and zofran 8mg ivp for c/o abd pain and nausea at this time per patients request.
[2018-11-05] MEDS: METRONIDAZOLE 500MG/NS 100ML 100 ML IV SCH ×3 (05:16→22:00)
[2018-11-05] MEDS: DICYCLOMINE HCL 20 MG TAB PO SCH ×3 (05:16→22:00)
[2018-11-05] MEDS: METHYLPREDNISOLONE SOD SUCC 40 MG/ML VIAL 1ML IV SCH ×3 (05:16→22:00)
[2018-11-05 06:07] LABS: BASOPHILS % 0.3 % (0.0-1.0); HEMATOCRIT 28.7 % (34.2-44.1); HEMOGLOBIN 9.1 g/dL (12.0-16.0); LYMPHOCYTES # (AUTO) 0.4 (1.0-3.2); LYMPHOCYTES % 6.1 % (18.0-39.1); MEAN CORPUSCULAR HEMOGLOBIN 31.3 pg (28-32); MEAN CORPUSCULAR HGB CONC 31.7 g/dL (31-35); MEAN CORPUSCULAR VOLUME 98.6 fL (81-99); MONOCYTES # (AUTO) 0.5 (0.2-0.8); MONOCYTES % 8.2 % (4.4-11.3); NEUTROPHILS # (AUTO) 5.5 (2.1-6.9); NEUTROPHILS % 83.7 % (38.7-80.0); PLATELET COUNT 296 x10e3/uL (140-360); RED BLOOD COUNT 2.91 x10e6/uL (3.6-5.1); RED CELL DISTRIBUTION WIDTH 15.9 % (11.7-14.4)
--- NOTE | 2018-11-05 06:19 | NUR ---
patient medicated with dilaudid 1mg and zofran 8mg ivp for c/o abd pain 09/06 at this time per patients request.
[2018-11-05 06:37] LABS: ANION GAP 11.2 mmol/L (8-16); BLOOD UREA NITROGEN 17 mg/dL (7-26); BUN/CREATININE RATIO 29 (6-25); CALCIUM 8.4 mg/dL (8.4-10.2); CARBON DIOXIDE 31 mmol/L (22-29); CHLORIDE 101 mmol/L (98-107); CREATININE, SERUM 0.58 mg/dL (0.57-1.11); EST GLOMERULAR FILTRATION RATE > 60 ML/MIN (60-); GLUCOSE 111 mg/dL (74-118); POTASSIUM 3.2 mmol/L (3.5-5.1); SODIUM 140 mmol/L (136-145)
--- NOTE | 2018-11-05 07:07 | NUR ---
Received bedside report from night nurse. Patient resting in bed, alert and oriented, no signs of distress at this time. All safety measures in place. Will continue to monitor.
[2018-11-05] MEDS: FOLIC ACID 1 MG TAB PO SCH (08:54)
[2018-11-05] MEDS: TOFACITINIB 10 MG PO SCH ×2 (08:54→17:20)
[2018-11-05] MEDS: IRON SUCROSE 100 MG in SODIUM CHLORIDE 0.9% 100 ML 100 ML IV SCH (08:54)
[2018-11-05] MEDS: SUCRALFATE 1 GM/10 ML SUSP NG SCH ×4 (08:54→21:00)
[2018-11-05] MEDS: LACTOBACILLUS ACIDOPHILUS CAPSULE PO SCH ×3 (08:54→21:00)
[2018-11-05] MEDS ORDERED: POTASSIUM CHLORIDE 20 MEQ TAB CR PO NR (10:00)
[2018-11-05] MEDS: LEVOFLOXACIN 500MG/D5W 100ML 100 ML IV SCH (10:25)
[2018-11-05] MEDS: HYDROCODONE/APAP 5MG-325MG TAB PO PRN ×2 (14:01→20:07)
--- NOTE | 2018-11-05 14:12 | Progress Note ---
DATE: 11/05/2018 Internal Medicine Progress Note SUBJECTIVE: The patient is doing well. No significant complaint. PHYSICAL EXAMINATION: VITAL SIGNS: Blood pressure is 104/56, temperature 99.0, heart rate 87 per minute, respiratory rate 18 per minute, O2 saturation 98%. ABDOMEN: Soft. LABORATORY DATA: On the BMP; sodium 140, potassium 3.2, chloride 101, CO2 of 31, BUN 17, creatinine 0.59, glucose 111. On CBC; white count 6.57, hemoglobin 9.1, hematocrit 28.7, platelet count 296,000. AST 11, ALT 40, total bilirubin 0.3, alkaline phosphatase 68. FINAL IMPRESSION: 1. Ulcerative colitis exacerbation. 2. Acute anemia. 3. Rectal bleeding. 4. Hypokalemia. 5. Leukopenia. PLAN OF TREATMENT: Continue IV supplementation. Continue on Levaquin 500 mg IV daily, metronidazole 500 mg IV q.8 hours. Continue Tylenol 650 mg q.4 hours as needed for pain or fever, folic acid 1 mg daily, [place] 1 tablet q.4 hours as needed for pain, Protonix 40 mg twice a day, simethicone 80 mg q.3 hours as needed, Zofran 8 mg q.4 hours as needed, Bentyl 20 mg q.8 hours, Dilaudid has been discontinued. Continue promethazine 12.5 mg IV q.4 hours as needed for nausea and vomiting, Solu-Medrol 40 mg IV q.8 hours, lactobacillus acidophilus one tablet three times a day. The patient is doing better. Hemoglobin is better. Continue current treatment. We are going to replace the potassium. Recheck potassium and magnesium level tomorrow. MD YANNICK Roberts/JOSE /[id number]
--- NOTE | 2018-11-05 14:40 | NUR ---
Visit made by the Spiritual Care Department Pastoral Visitor, Rod Villa. PV provided pastoral presence, hospitality, and supportive listening. Pastoral Visitor informed pt/family of the scope of [employer] and availability. STEPHANE STALEY Property Technician Spiritual Care Department O: [phone] Pager: [phone] ([phone] number calling from)
--- NOTE | 2018-11-05 18:37 | NUR ---
SPOKE TO MORALES WITH PT'S TRANSFER AT [facility]. PT IS STILL ON THE LIST AWAITING A BED TO OPEN UP.
--- NOTE | 2018-11-05 19:28 | NUR ---
Bedside report given to night nurse. Patient resting in bed, no signs of distress at this time. All safety measures in place. Family at bedside.
--- NOTE | 2018-11-05 22:32 | NUR ---
RECEIVED PT IN BED AOX3 .RESPIRATIONS ARE EVEN AND UNLABORED .PT C/O PAIN FAMILY AT THE BEDSIDE CALL LIGHT WITH IN REACH CONTINUE TO MONITOR
[2018-11-06] MEDS: HYDROMORPHONE 1MG/1ML INJ IV PRN (00:15)
[2018-11-06] MEDS: PANTOPRAZOLE 40 MG 10ML VIAL IV SCH (03:00)
[2018-11-06] MEDS: HYDROCODONE/APAP 5MG-325MG TAB PO PRN (03:41)
[2018-11-06] MEDS: SIMETHICONE 80 MG CHEW PO SCH ×3 (03:54→06:00)
[2018-11-06 04:59] VITALS: BP 113/69
[2018-11-06] MEDS: DICYCLOMINE HCL 20 MG TAB PO SCH (06:00)
[2018-11-06] MEDS: METHYLPREDNISOLONE SOD SUCC 40 MG/ML VIAL 1ML IV SCH (06:00)
[2018-11-06] MEDS: METRONIDAZOLE 500MG/NS 100ML 100 ML IV SCH (06:00)
[2018-11-06 06:32] LABS: BASOPHILS % 0.2 % (0.0-1.0); HEMATOCRIT 24.9 % (34.2-44.1); LYMPHOCYTES # (AUTO) 0.6 (1.0-3.2); LYMPHOCYTES % 13.2 % (18.0-39.1); MEAN CORPUSCULAR HEMOGLOBIN 31.4 pg (28-32); MEAN CORPUSCULAR HGB CONC 32.1 g/dL (31-35); MEAN CORPUSCULAR VOLUME 97.6 fL (81-99); MONOCYTES # (AUTO) 0.6 (0.2-0.8); MONOCYTES % 13.5 % (4.4-11.3); NEUTROPHILS # (AUTO) 3.2 (2.1-6.9); NEUTROPHILS % 69.8 % (38.7-80.0); PLATELET COUNT 218 x10e3/uL (140-360); RED BLOOD COUNT 2.55 x10e6/uL (3.6-5.1); RED CELL DISTRIBUTION WIDTH 16.2 % (11.7-14.4)
--- NOTE | 2018-11-06 06:33 | NUR ---
PT C/O PAIN AND MEDICATED WITH DILAUDID AND NORCO .DR WEST HAS SEEN THE PT /CALL LIGHT WITH IN REACH .CONTINUE TO MONITOR
[2018-11-06 06:50] LABS: ANION GAP 9.1 mmol/L (8-16); BLOOD UREA NITROGEN 11 mg/dL (7-26); BUN/CREATININE RATIO 22 (6-25); CALCIUM 8.1 mg/dL (8.4-10.2); CARBON DIOXIDE 32 mmol/L (22-29); CHLORIDE 100 mmol/L (98-107); CREATININE, SERUM 0.49 mg/dL (0.57-1.11); EST GLOMERULAR FILTRATION RATE > 60 ML/MIN (60-); GLUCOSE 92 mg/dL (74-118); POTASSIUM 4.1 mmol/L (3.5-5.1); SODIUM 137 mmol/L (136-145)
--- NOTE | 2018-11-06 07:08 | NUR ---
BEDSIDE REPORT GIVEN TO THE ONCOMING NURSE NO ACUTE DISTRESS NOTED
--- NOTE | 2018-11-06 07:45 | NUR ---
DR SUTTON HERE DISCHARGED PT
[2018-11-06 08:02] LABS: ANISOCYTOSIS SLIGHT; BAND NEUTROPHILS % (MANUAL) 8 %; LYMPHOCYTES % (MANUAL) 15 % (19-48); MONOCYTES % (MANUAL) 11 % (3.4-9.0); NEUTROPHILS % (MANUAL) 66 % (40-74); POIKILOCYTOSIS SLIGHT
[2018-11-06 08:03] VITALS: BP 99/55
[2018-11-06 08:03] LABS: PLATELET ESTIMATE ADEQUATE; PLATELET MORPHOLOGY COMMENT NORMAL; RBC MORPHOLOGY COMMENT NORMAL
[2018-11-06] MEDS ORDERED: FLAGYL250 MG PO (08:09)
[2018-11-06] MEDS ORDERED: LEVAQUIN500 MG PO (08:09)
[2018-11-06] MEDS ORDERED: PROMETHAZINE HC50 MG PO (08:11)
[2018-11-06] MEDS ORDERED: PANTOPRAZOLE SO40 MG PO (08:12)
[2018-11-06] MEDS ORDERED: IRON SULFATE PO (08:12)
[2018-11-06] MEDS ORDERED: NORCO 5-325 TA1 EACH PO (08:13)
--- NOTE | 2018-11-06 08:30 | NUR ---
PT DISCHARGED HOME ,IV DCD WITHOUT REDNESSOR SWELLING,,PRESCRIPTIONS AND INSTRUCTIONS GIVEN COPY ON CHART.TRANSPORTED TO AUTO VIA W/C
--- NOTE | 2018-11-06 09:21 | Discharge Summary ---
ADMIT DIAGNOSES: 1. Colitis. 2. Hematochezia secondary to colitis. 3. Post hemorrhagic anemia. 4. Urinary tract infection. DISCHARGE DIAGNOSES: 1. Ulcerative colitis with severe deep left colon ulcers. 2. Status post colonoscopy. 3. Post hemorrhagic anemia. 4. Status post blood transfusion on 2 separate occasions. 5. E coli urinary tract infection, resolved. 6. Hematochezia, resolved. HOSPITAL COURSE: This is a 38-year-old white woman, who was initially admitted to [facility] with diagnosis of acute colitis. During this hospitalization, the patient underwent a colonoscopy, which revealed severe ulcerated left colon as well as ulcerations in the distal rectum. The colonic biopsies were negative for cytomegalovirus and malignancy, but did revealed findings consistent with chronic inactive colitis with chronic inflammation and granulation tissue. During this hospitalization, the patient was transfused with packed red blood cells on 2 separate occasions. The patient improved clinically once she was started on oral Xeljanz 1 pill twice a day. Also, the patient improved clinically in regard to her colitis with intravenous metronidazole and levofloxacin. Initially, the patient was found to have E coli urinary tract infection, which was fully treated with a 10-day course of intravenous cefepime. During this hospitalization, the patient was seen by her gastrologist, namely Dr. Jose Reyna, who performed the above-mentioned colonoscopy. The patient was also started on intravenous methylprednisone for her ulcerative colitis exacerbation. During this hospitalization, multiple attempts were made to transfer the patient to a higher level of care, namely [facility] and [facility] both in [place]. [facility] apparently never had a hospital bed available and [facility] in the [place] felt the patient did not require tertiary care. On the day of discharge, the patient's white blood cell count was 4500 with 69% segmenters. Also on day of discharge, hemoglobin was 8 g/dL. The patient's hematochezia resolved prior to discharge. DISCHARGE MEDICATIONS: 1. Levaquin 500 mg daily for 5 more days. 2. Metronidazole 500 mg t.i.d. for 5 more days. 3. Phenergan 25 mg b.i.d. p.r.n. nausea, 60 prescribed, 1 refill. 4. Iron sulfate 325 mg b.i.d. 5. Protonix 40 mg daily. 6. [place] 5/325 one t.i.d. p.r.n. abdominal pain, 45 prescribed. 7. Prednisone 40 mg daily for 2 weeks and then 20 mg daily for 2 more weeks. 8. Xeljanz 10 mg p.o. b.i.d. FOLLOWUP INSTRUCTIONS: The patient is instructed to follow up with Dr. Jose Reyna within 2 weeks. The patient is instructed to go to nearest emergency room if she has any gross hematochezia. MD DIO Borjas/JOSE /[id number] cc: Jose Reyna MD
== END 2018-11-06 08:27 | disposition home or self-care (01) | DRG 872 ==
LOC: ER 16:03 → ERHOLD 17:58 → MED/SURG3 19:56 → MED/SURG 10-31 17:29 → MED/SURG3 10-31 17:30
PROC: 30233N1 Transfusion of Nonautologous Red Blood Cells into Peripheral Vein, Percutaneous Approach (ICD-10-PCS; 2018-10-19)
PROC: 0DBP8ZX Excision of Rectum, Via Natural or Artificial Opening Endoscopic, Diagnostic (ICD-10-PCS; 2018-10-25)
PROC: 0DBM8ZX Excision of Descending Colon, Via Natural or Artificial Opening Endoscopic, Diagnostic (ICD-10-PCS; principal; 2018-10-25 15:30)
PROC: 0DBN8ZX Excision of Sigmoid Colon, Via Natural or Artificial Opening Endoscopic, Diagnostic (ICD-10-PCS; 2018-10-25 15:30)
PROC: 30233N1 Transfusion of Nonautologous Red Blood Cells into Peripheral Vein, Percutaneous Approach (ICD-10-PCS; 2018-10-31)
DX: A41.9 Sepsis, unspecified organism (principal); K51.511 Left sided colitis with rectal bleeding; E44.0 Moderate protein-calorie malnutrition; D62 Acute posthemorrhagic anemia; N39.0 Urinary tract infection, site not specified; E87.1 Hypo-osmolality and hyponatremia; Z68.1 Body mass index [BMI] 19.9 or less, adult; B96.20 Unspecified Escherichia coli [E. coli] as the cause of diseases classified elsewhere; Z82.49 Family history of ischemic heart disease and other diseases of the circulatory system; E86.0 Dehydration; Z98.84 Bariatric surgery status; E66.3 Overweight; Z80.42 Family history of malignant neoplasm of prostate; Z83.3 Family history of diabetes mellitus; Z87.891 Personal history of nicotine dependence; R33.9 Retention of urine, unspecified; D72.829 Elevated white blood cell count, unspecified; E83.52 Hypercalcemia; K80.20 Calculus of gallbladder without cholecystitis without obstruction; E87.5 Hyperkalemia; N28.1 Cyst of kidney, acquired; E87.6 Hypokalemia; D72.819 Decreased white blood cell count, unspecified; D63.8 Anemia in other chronic diseases classified elsewhere
CPT/HCPCS: 36415; 45378; 45380; 74177; 80048; 80053; 81001; 82306; 82607; 82728; 82746; 83540; 83630; 83735; 83993; 84132; 84466; 84702; 85007; 85025; 85027; 85045; 85651; 86140; 86644; 86645; 86850; 86900; 86920; 87045; 87086; 87177; 87186; 87328; 87493; 88305; 88342; 96361; 99284; J0500; J0692; J1100; J1170; J1610; J1756; J1940; J1956; J2250; J2270; J2405; J2550; J2920; J3010; J3480; J7030; J7050; J7512; P9016; Q9967